=== PATIENT | female | born 1940 | race Caucasian/White ===

== ENCOUNTER 2018-10-03 08:56 | Emergency (ER) | payer MEDICARE, OTHER ==
[2018-10-03 09:24] VITALS: BP 156/76
--- NOTE | 2018-10-03 09:28 | EDM.PDOC ---
<Latonia Key - Last Filed: 10/03/18 11:25> ED HPI GENERAL MEDICAL PROBLEM - General Chief Complaint: Genitourinary Problem Stated Complaint: KIDNEY STONE? Time Seen by Provider: 10/03/18 09:35 Source of Information: Reports: Patient History Limitations: Reports: No Limitations - History of Present Illness INITIAL COMMENTS - FREE TEXT/NARRATIVE: Patient presents to ER with CC of blood in urine as well as urinary retention. Patient did have appointment with PCP this morning, but states that she was not able to void and instructed to present to ER. Patient states that this blood in her urine has been ongoing for a couple days. Patient additionally states that this is not the first time she has experienced blood in her urine. Patient does follow with nephrology, Dr. Winslow,in [place], [place]. Patient states that she experienced some sharp pain in her right flank region yesterday but that has since let up. Currently, patient states she feels a heavy pressure in her low groin region. Patient denies any nausea, vomiting, fever, or chills. Patient states that she had a UTI "many, many years" ago. Denies any history of kidney stones. Did void very small amount once arriving to ER. Patient reports that last bowel movement was yesterday, has daily BM's and has been regular with this. Onset Date: 09/30/18 Location: Reports: Other (low groin and right back/flank) Quality: Reports: Pressure Severity: Moderate Associated Symptoms: Reports: Other (urinary retention) Groin Pain Score (Numeric/FACES): 7 - Related Data Allergies Allergy/AdvReac Type Severity Reaction Status Date / Time cephalexin [Cephalexin] Allergy Cannot Verified 10/03/18 09:12 Remember levofloxacin [From Levaquin] Allergy Muscle Verified 10/03/18 09:12 Aches sulfadiazine [Sulfadiazine] Allergy Cannot Verified 10/03/18 09:12 Remember triamcinolone Allergy Cannot Verified 10/03/18 09:12 Remember triamcinolone acetonide Allergy Swollen Verified 10/03/18 09:12 [From Nasacort AQ] Tongue Home Meds: Home Meds Aspirin [Low Dose Aspirin EC] 81 mg PO BEDTIME 06/19/13 [History] Benazepril [Lotensin] 60 mg PO BID 02/19/14 [History] Metoprolol Tartrate 200 mg PO BID 06/19/13 [History] amLODIPine [Norvasc] 10 mg PO BEDTIME 06/19/13 [History] Albuterol [Ventolin HFA] 2 puff INH Q4H PRN 11/26/13 [History] Cetirizine HCl [Zyrtec] 10 mg PO .PRN PRN 02/16/18 [History] Chlorthalidone 25 mg PO BEDTIME 02/16/18 [History] Fluticasone Propionate [Flonase Allergy Relief] 1 spray NASBOTH .PRN 02/16/18 [ History] Fluticasone/Salmeterol [Advair 500-50] 1 puff PO BID 02/16/18 [History] Isosorbide Mononitrate [Isosorbide Mononitrate ER] 30 mg PO BID 02/16/18 [ History] Ipratropium [Atrovent 0.06% Nasal [place]] 15 ml BENEDICT TID PRN 02/17/18 [History] Albuterol/Ipratropium [DuoNeb 3.0-0.5 MG/3 ML] 3 ml NEB QID PRN #60 neb [Rx] Past Medical History HEENT History: Reports: Hard of Hearing, Impaired Vision Cardiovascular History: Reports: None Respiratory History: Reports: COPD, Pneumonia, Recurrent, SOB Other Respiratory History: Hx of double pneumonia recurrent in the , since pneumonia vaccine was givne in the .it has not reoccured Gastrointestinal History: Reports: Other (See Below) Other Gastrointestinal History: Hx of microscopic colitis Genitourinary History: Reports: Renal Disease, Other (See Below) Other Genitourinary History: Stage 3 kidney disease NEGATIVE TURNER APPRENTICE History: Reports: None, Other NEGATIVE TURNER APPRENTICE History: x6 Musculoskeletal History: Reports: Osteoarthritis Neurological History: Reports: CVA, Other (See Below) Other Neuro History: Right side CVA Psychiatric History: Reports: Depression Endocrine/Metabolic History: Reports: Diabetes, Type II, Other (See Below) Other Endocrine/Metabolic History: Controled with diet Hematologic History: Reports: None Immunologic History: Reports: None Oncologic (Cancer) History: Reports: None Dermatologic History: Reports: None - Infectious Disease History Infectious Disease History: Reports: Chicken Pox, Measles, Mumps, Shingles - Past Surgical History Head Surgeries/Procedures: Reports: None HEENT Surgical History: Reports: Laser Surgery Other HEENT Surgeries/Procedures: bilateral eye Cardiovascular Surgical History: Reports: None GI Surgical History: Reports: None Female Surgical History: Reports: D&C Endocrine Surgical History: Reports: None Neurological Surgical History: Reports: None Musculoskeletal Surgical History: Reports: None Social & Family History - Family History Family Medical History: Noncontributory - Tobacco Use Smoking Status *Q: Former Smoker Years of Tobacco use: 60 Packs/Tins Daily: 1 Used Tobacco, but Quit: Yes Month/Year Tobacco Last Used: January, Second Hand Smoke Exposure: No - Caffeine Use Caffeine Use: Reports: Coffee, Soda, Tea - Recreational Drug Use Recreational Drug Use: No ED ROS GENERAL - Review of Systems Review Of Systems: ROS reveals no pertinent complaints other than HPI. ED EXAM, RENAL/ - Physical Exam Exam: See Below Exam Limited By: No Limitations General Appearance: Alert, WD/WN, No Apparent Distress Head: Atraumatic, Normocephalic Neck: Normal Inspection, Supple, Non-Tender, Full Range of Motion Respiratory/Chest: No Respiratory Distress, Lungs Clear, Normal Breath Sounds, No Accessory Muscle Use, Chest Non-Tender Cardiovascular: Normal Peripheral Pulses, Regular Rate, Rhythm, No Edema, No Gallop, No JVD, No Murmur, No Rub GI/Abdominal: Normal Bowel Sounds, No Distention, No Abnormal Bruit, Distended, Tender (heavy pressure to low groin) Back Exam: Normal Inspection, Full Range of Motion (hx of chronic back pain), NT Extremities: Normal Inspection, Normal Range of Motion, Non-Tender, Normal Capillary Refill, No Pedal Edema Neurological: Alert, Oriented, CN II-XII Intact, Normal Cognition, Normal Gait, Normal Reflexes, No Motor/Sensory Deficits Psychiatric: Normal Affect, Normal Mood Skin Exam: Warm, Dry, Intact, Normal Color, No Rash Course - Vital Signs Last Recorded V/S: Last Vital Signs Temp 96.8 F 10/03/18 09:05 Pulse 65 10/03/18 09:05 Resp 24 H 10/03/18 09:05 BP 156/76 H 10/03/18 09:23 Pulse Ox 99 10/03/18 09:05 - Orders/Labs/Meds Orders: Active Orders 24 hr Category Date Time Status [place] Catheter Insertion [Insert Urinary Catheter] [OM. Care 10/03/18 09:45 Ordered PC] Q24H Peripheral IV Care [RC] . DIRECTED Care 10/03/18 09:46 Active Urinary Catheter Assessment [RC] ASDIRECTED Care 10/03/18 09:43 Active Abdomen Pelvis wo Cont [CT] Urgent Exams 10/03/18 09:43 Taken CULTURE URINE [RM] Stat Lab 10/03/18 09:35 Received Sodium Chloride 0.9% [Saline Flush] Med 10/03/18 09:46 Active 10 ml FLUSH ASDIRECTED PRN Peripheral IV Insertion Adult [OM.PC] Routine Oth 10/03/18 09:46 Ordered Medication Orders Sodium Chloride (Saline Flush) 10 ml FLUSH ASDIRECTED PRN PRN Reason: Keep Vein Open Last Admin: 10/03/18 10:20 Dose: 10 ml Labs: Laboratory Tests 10/03/18 10/03/18 10/03/18 Range/Units 09:35 10:22 10:22 WBC 9.3 (5.0-10.0) 10^3/uL RBC 4.62 (4.2-5.4) 10^6/uL Hgb 14.1 D (12.0-16.0) g/dL Hct 42.1 (37.0-47.0) % MCV 91.1 (80-100) fL MCH 30.5 (27.0-34.0) pg MCHC 33.5 (33.0-35.0) g/dL Plt Count 280 (150-450) 10^3/uL Neut % (Auto) 69.3 (42.2-75.2) % Lymph % (Auto) 18.5 L (20.5-50.1) % [place] % (Auto) 10.9 H (2-8) % Eos % (Auto) 1.2 (1.0-3.0) % Baso % (Auto) 0.1 (0.0-1.0) % Sodium 135 (135-145) mmol/L Potassium 4.4 (3.6-5.0) mmol/L Chloride 101 (101-111) mmol/L Carbon Dioxide 23.0 (21.0-31.0) mmol/L Anion Gap 15.4 BUN 53 H D (7-18) mg/dL Creatinine 1.2 (0.6-1.3) mg/dL Est Cr Clr Drug Dosing 33.72 mL/min Estimated GFR (MDRD) 44 BUN/Creatinine Ratio 44.16 Glucose 204 H (74-105) mg/dL Calcium 9.8 (8.4-10.2) mg/dl Total Bilirubin 0.8 (0.2-1.0) mg/dL AST 21 (10-42) IU/L ALT 18 (10-60) IU/L Alkaline Phosphatase 62 (42-121) IU/L Total Protein 7.3 (6.7-8.2) g/dl Albumin 4.2 (3.2-5.5) g/dl Globulin 3.1 Albumin/Globulin Ratio 1.35 Urine Color [place] (YELLOW) Urine Appearance Slightly cloudy (CLEAR) Urine pH 5.0 (5.0-9.0) Ur Specific [place] 1.020 (1.005-1.030) Urine Protein 100 H (NEGATIVE) Urine Glucose (UA) 100 H (NEGATIVE) Urine Ketones Negative (NEGATIVE) Urine Occult Blood Large H (NEGATIVE) Urine Nitrite Positive H (NEGATIVE) Urine Bilirubin Small H (NEGATIVE) Urine Urobilinogen 0.2 (0.2-1.0) mg/dL Ur Leukocyte Esterase Large H (NEGATIVE) Urine RBC Semi-packed H /HPF Urine WBC 10-20 H (0-5/HPF) /HPF Ur Epithelial Cells Moderate H (NOT SEEN) /HPF Amorphous Sediment Few (NOT SEEN) /HPF Urine Bacteria Few (0-FEW/HPF) /HPF Urine Mucus Few H (NOT SEEN) /LPF Urinalysis Comment See note Meds: Medications Generic Name Dose Route Start Last Admin Trade Name Freq PRN Reason Stop Dose Admin Sodium Chloride 10 ml 10/03/18 09:46 10/03/18 10:20 Saline Flush FLUSH 10 ml ASDIRECTED PRN Administration Keep Vein Open Discontinued Medications Generic Name Dose Route Start Last Admin Trade Name Freq PRN Reason Stop Dose Admin Hydromorphone HCl 1 mg 10/03/18 09:46 10/03/18 10:26 Dilaudid IVPUSH 10/03/18 09:47 1 mg ONETIME ONE Administration Meropenem/Sodium Chloride 1 gm 50 mls @ 100 mls/hr 10/03/18 10:26 10/03/18 10 :52 / Premix IV 10/03/18 10:55 100 mls/hr ONETIME ONE Administration Ondansetron HCl 4 mg 10/03/18 09:48 10/03/18 10:26 Zofran IV 10/03/18 09:49 4 mg ONETIME ONE Administration - Re-Assessments/Exams Free Text/Narrative Re-Assessment/Exam: Indwelling urinary catheter inserted to be left in place until patient has follow up with urology. Appointment scheduled for MondayOctober [address] [facility] in [place] at 0940, with LUCIEN Contreras for pre-op. Then, at 2:45 on October 09, scheduled for bladder scope at the [facility] in [place], [place]. NPO not required. 10/03/18 11:30 Departure - Departure Time of Disposition: 11:31 Disposition: Home, Self-Care 01 Clinical Impression: Bladder mass, UTI, Urinary tract infectious disease, Retention of urine Hematuria Qualifiers: Hematuria type: gross Qualified Code(s): R31.0 - Gross hematuria - Discharge Information *PRESCRIPTION DRUG MONITORING PROGRAM REVIEWED*: No *COPY OF PRESCRIPTION DRUG MONITORING REPORT IN PATIENT CORWIN: No Instructions: Urinary Tract Infection, Adult, [id number], Indwelling Urinary Catheter Insertion, Care After, Hematuria, Adult Referrals: Rachael Sullivan PA [Primary Care Provider] - Forms: ED Department Discharge Additional Instructions: Rx: Cipro You were given one dose of IV antibiotic, Meropenem, in the emergency room. Leave urinary catheter in place until follow up with urology. Follow up appointment is scheduled for October [address] [facility] in [place] with Sandra Watters PA-C. Arrive 15 minutes early for this appointment. Then, at 2:45 on October 09, you are scheduled for bladder scope in [place], [place] at [facility]. There is no need to withhold food or drink for this procedure. <Everette Holder - Last Filed: 10/03/18 11:34> Course - Re-Assessments/Exams Free Text/Narrative Re-Assessment/Exam: 10/03/18 11:33 I personally performed or re-performed the physical examination and medical decision making. I have verified all student documentation or findings, including history, physical exam and/or medical decision making.
[2018-10-03] MEDS ORDERED: Sodium Chloride 0.9% 10 ML Syringe FLUSH PRN (09:46)
[2018-10-03] MEDS ORDERED: HYDROmorphone 1 MG/ML Syringe IVPUSH ONE (09:46)
[2018-10-03] MEDS ORDERED: Ondansetron 4 MG/2 ML SDV IV ONE (09:48)
[2018-10-03] MEDS ORDERED: Meropenem Premix 1 GM in Premix Bag 1 BAG IV ONE (10:26)
[2018-10-03 10:47] LABS: ANION GAP 15.4
--- NOTE | 2018-10-03 11:33 | CT ---
CLINICAL u: [id number] pound female (former smoker) with back pain and abnormal urine. SCAN TECHNIQUE: Volume acquisition of data from an emergency unenhanced CT scan of the abdomen and pelvis obtained while the patient was lying supine on the Siemens multislice scanner [place], [place]. All data archived in the PACS system for storage, reformatting axial/sagittal/coronal planes and study. INTERPRETATION: 1. Small volume inhomogeneously dense gallbladder RUQ. Recommend ultrasound follow-up. 2. Normal liver, stomach, spleen, pancreas, adrenal glands unremarkable. 3. Solitary 2.3 cm water attenuation exophytic mass lower pole left kidney (cyst). No solid discrete cortical mass lesion, nephrolithiasis or signs of obstructive uropathy. 4. Distended urinary bladder with at least 2 intraluminal mucosal wall masses suggesting transitional cell neoplasm. *Recommend cystoscopy and/or cystogram. 5. Senescent midline uterus and no adnexal mass lesions. No abdominal mass, mesenteric or retroperitoneal lymphadenopathy, signs of mechanical bowel obstruction, ascites or free intraperitoneal air. Normal retrocecal appendix, right paracolic gutter. 6. Densely calcified "cast" normal caliber aortoiliac and major branches (no aneurysm or dissection). 7. Lung bases are clear. Normal cardiac silhouette. No sign of malignancy lumbar spine. No fracture or dislocation. 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 Suspicious gallbladder. Ultrasound recommended.
== END 2018-10-03 12:02 | disposition home or self-care (01) ==
LOC: DL.ED 08:56
DX: N32.9 Bladder disorder, unspecified (principal); N39.0 Urinary tract infection, site not specified; J44.9 Chronic obstructive pulmonary disease, unspecified; N18.3 Chronic kidney disease, stage 3 (moderate); E11.22 Type 2 diabetes mellitus with diabetic chronic kidney disease; F32.9 Major depressive disorder, single episode, unspecified; Z87.891 Personal history of nicotine dependence; Z88.1 Allergy status to other antibiotic agents; Z88.8 Allergy status to other drugs, medicaments and biological substances; Z79.899 Other long term (current) drug therapy; Z79.82 Long term (current) use of aspirin
CPT/HCPCS: 36415; 51702; 74176; 80053; 81001; 85025; 87086; 96365; 96375; 99284; A4217; J1170; J2185; J2405; 87088

== ENCOUNTER 2018-10-05 17:12 | Emergency (ER) | payer MEDICARE, OTHER ==
--- NOTE | 2018-10-05 20:20 | EDM.PDOC ---
ED HPI GENERAL MEDICAL PROBLEM - General Chief Complaint: Genitourinary Problem Stated Complaint: CATHETER IS OUT Time Seen by Provider: 10/05/18 18:00 Source of Information: Reports: Patient History Limitations: Reports: No Limitations - History of Present Illness INITIAL COMMENTS - FREE TEXT/NARRATIVE: patient comes emergency Department today with complaints of leakage of her Ramyond catheter and increase abdominal pressure and urge for urination. The patient on Monday was diagnosed with a bladder tumor and had a Raymond placed due to urinary retention and hematuria. She has a follow-up with urology on Monday for the hematuria as well as the urinary retention and newly diagnosed bladder tumor. Tonight she noticed that she was having quite a bit more pressure in her lower abdomen urge to void and had some leakage of fluid around the Raymond catheter. She has noticed an increased amount of blood in her leg bag as well. No chest pain shortness of breath or difficulty breathing. No syncope. No palpitations. No dizziness or lightheadedness. - Related Data Allergies Allergy/AdvReac Type Severity Reaction Status Date / Time cephalexin [Cephalexin] Allergy Cannot Verified 10/05/18 17:45 Remember levofloxacin [From Levaquin] Allergy Muscle Verified 10/05/18 17:45 Aches sulfadiazine [Sulfadiazine] Allergy Cannot Verified 10/05/18 17:45 Remember triamcinolone Allergy Cannot Verified 10/05/18 17:45 Remember triamcinolone acetonide Allergy Swollen Verified 10/05/18 17:45 [From Nasacort AQ] Tongue Home Meds: Home Meds Aspirin [Low Dose Aspirin EC] 81 mg PO BEDTIME 06/19/13 [History] Benazepril [Lotensin] 60 mg PO BID 06/19/13 [History] Metoprolol Tartrate 200 mg PO BID 06/19/13 [History] amLODIPine [Norvasc] 10 mg PO BEDTIME 06/19/13 [History] Albuterol [Ventolin HFA] 2 puff INH Q4H PRN 11/26/13 [History] Cetirizine HCl [Zyrtec] 10 mg PO .PRN PRN 02/16/18 [History] Chlorthalidone 25 mg PO BEDTIME 02/16/18 [History] Fluticasone Propionate [Flonase Allergy Relief] 1 spray NASBOTH .PRN 02/16/18 [ History] Fluticasone/Salmeterol [Advair 500-50] 1 puff PO BID 02/16/18 [History] Isosorbide Mononitrate [Isosorbide Mononitrate ER] 30 mg PO BID 02/16/18 [ History] Ipratropium [Atrovent 0.06% Nasal [place]] 15 ml BENEDICT TID PRN 02/17/18 [History] Albuterol/Ipratropium [DuoNeb 3.0-0.5 MG/3 ML] 3 ml NEB QID PRN #60 neb [Rx] Ciprofloxacin [Ciprofloxacin HCl] 500 mg PO BID 10/05/18 [History] Past Medical History HEENT History: Reports: Hard of Hearing, Impaired Vision Cardiovascular History: Reports: None Respiratory History: Reports: COPD, Pneumonia, Recurrent, SOB Other Respiratory History: Hx of double pneumonia recurrent in the , since pneumonia vaccine was givne in the .it has not reoccured Gastrointestinal History: Reports: Other (See Below) Other Gastrointestinal History: Hx of microscopic colitis Genitourinary History: Reports: Renal Disease, Other (See Below) Other Genitourinary History: Stage 3 kidney disease. Bladder tumor, blood tinged urine and indwelling raymond placed 10/03/2018 HITCH TECHNICIAN History: Reports: None, Other HITCH TECHNICIAN History: x6 Musculoskeletal History: Reports: Osteoarthritis Neurological History: Reports: CVA, Other (See Below) Other Neuro History: Right side CVA Psychiatric History: Reports: Depression Endocrine/Metabolic History: Reports: Diabetes, Type II, Other (See Below) Other Endocrine/Metabolic History: Controled with diet Hematologic History: Reports: None Immunologic History: Reports: None Oncologic (Cancer) History: Reports: None Dermatologic History: Reports: None - Infectious Disease History Infectious Disease History: Reports: Chicken Pox, Measles, Mumps, Shingles - Past Surgical History Head Surgeries/Procedures: Reports: None HEENT Surgical History: Reports: Laser Surgery Other HEENT Surgeries/Procedures: bilateral eye Cardiovascular Surgical History: Reports: None GI Surgical History: Reports: None Female Surgical History: Reports: D&C Endocrine Surgical History: Reports: None Neurological Surgical History: Reports: None Musculoskeletal Surgical History: Reports: None Social & Family History - Family History Family Medical History: Noncontributory - Tobacco Use Smoking Status *Q: Former Smoker Used Tobacco, but Quit: Yes Month/Year Tobacco Last Used: 2018 - Caffeine Use Caffeine Use: Reports: Coffee, Soda, Tea ED ROS GENERAL - Review of Systems Review Of Systems: ROS reveals no pertinent complaints other than HPI. ED EXAM, RENAL/ - Physical Exam Exam: See Below Exam Limited By: No Limitations General Appearance: Alert, WD/WN Respiratory/Chest: No Respiratory Distress, Lungs Clear, Chest Non-Tender Cardiovascular: Normal Peripheral Pulses, Regular Rate, Rhythm GI/Abdominal: Normal Bowel Sounds, Soft, Tender (tenderness and fullness to the suprapubic region. Mild guarding no rebound. ) (Female) Exam: Other (Raymond catheter in place. With nitza blood in the Raymond bag with clots.Bladder scan shows greater than 1 L.) Back Exam: Normal Inspection Extremities: Normal Inspection, Normal Range of Motion, Normal Capillary Refill Neurological: Alert, Oriented, No Motor/Sensory Deficits Psychiatric: Normal Affect, Normal Mood Skin Exam: Warm, Dry, Intact, Normal Color ED PROCEDURES - Additional/Other Procedure(s) Procedure(s) (Free Text): three-way Raymond catheter was placed with continuous bladder irrigation and removal of quite a few clots initially. CBI was slowly titrated to keep the urine as clear as possible. Monitor closely for appropriate in amount. Course - Vital Signs Last Recorded V/S: Last Vital Signs Temp 36.5 C 10/05/18 17:14 Pulse 67 10/05/18 17:14 Resp 18 10/05/18 17:14 BP 147/58 H 10/05/18 17:14 Pulse Ox 99 10/05/18 17:14 - Orders/Labs/Meds Orders: Active Orders 24 hr Category Date Time Status Insert Raymond Catheter [Insert Urinary Catheter] [OM.PC] Care 10/05/18 20:15 Ordered Q24H Urinary Catheter Assessment [RC] ASDIRECTED Care 10/05/18 20:11 Active CBC WITH AUTO DIFF [HEME] Stat Lab 10/05/18 19:45 Results MANUAL DIFFERENTIAL QA/NC [HEME] Stat Lab 10/05/18 19:45 Results Labs: Laboratory Tests 10/05/18 10/05/18 10/05/18 Range/Units 19:45 19:45 19:45 WBC 8.5 (5.0-10.0) 10^3/uL RBC 4.07 L (4.2-5.4) 10^6/uL Hgb 12.6 D (12.0-16.0) g/dL Hct 37.2 (37.0-47.0) % MCV 91.4 (80-100) fL MCH 31.0 (27.0-34.0) pg MCHC 33.9 (33.0-35.0) g/dL Plt Count 239 (150-450) 10^3/uL Neut % (Auto) 67.6 (42.2-75.2) % Lymph % (Auto) 20.0 L (20.5-50.1) % [place] % (Auto) 10.8 H (2-8) % Eos % (Auto) 1.5 (1.0-3.0) % Baso % (Auto) 0.1 (0.0-1.0) % Add Manual Diff Yes PT 9.2 (9.0-12.0) SEC INR 0.9 (0.9-1.2) Sodium 133 L (135-145) mmol/L Potassium 4.5 (3.6-5.0) mmol/L Chloride 99 L (101-111) mmol/L Carbon Dioxide 23.0 (21.0-31.0) mmol/L Anion Gap 15.5 BUN 55 H (7-18) mg/dL Creatinine 1.4 H (0.6-1.3) mg/dL Est Cr Clr Drug Dosing 28.28 mL/min Estimated GFR (MDRD) 37 Glucose 171 H (74-105) mg/dL Calcium 9.2 (8.4-10.2) mg/dl - Re-Assessments/Exams Free Text/Narrative Re-Assessment/Exam: 10/05/18 20:30 I did speak with Dr. Hanna who declined the patient. Her hemoglobin has decreased by 2 grams. She is hemodynamically stable. I called and spoke with Dr. Lovelace at [facility]. [facility] ER COURSE findings and concerns were relayed to him. He accepted the patient in transfer at this time and no new orders. The patient was comfortable with this plan and her questions answered. 10/05/18 20:31 Departure - Departure Time of Disposition: 20:15 Disposition: DC/Tfer to Acute Hospital 02 Clinical Impression: Urinary retention, Hematuria - Discharge Information Forms: ED Department Discharge - My Orders Last 24 Hours: My Active Orders 10/05/18 19:45 CBC WITH AUTO DIFF [HEME] Stat MANUAL DIFFERENTIAL QA/NC [HEME] Stat 10/05/18 20:11 Urinary Catheter Assessment [RC] ASDIRECTED 10/05/18 20:15 Insert Raymond Catheter [Insert Urinary Catheter] [OM.PC] Q24H - Assessment/Plan Last 24 Hours: My Active Orders 10/05/18 19:45 CBC WITH AUTO DIFF [HEME] Stat MANUAL DIFFERENTIAL QA/NC [HEME] Stat 10/05/18 20:11 Urinary Catheter Assessment [RC] ASDIRECTED 10/05/18 20:15 Insert Raymond Catheter [Insert Urinary Catheter] [OM.PC] Q24H Assessment:: Hematuria urinary retention Both above most likely due to known bladder tumor. CBI. Plan: Transfer to [facility] with CBI infusing for further care and evaluation.
[2018-10-05 20:23] LABS: ANION GAP 15.5
[2018-10-05] MEDS ORDERED: Sodium Chloride 0.9% 10 ML Syringe FLUSH PRN (20:32)
[2018-10-06 01:45] VITALS: BP 114/88
== END 2018-10-06 02:24 ==
LOC: DL.ED 17:12
DX: R33.9 Retention of urine, unspecified (principal); R31.9 Hematuria, unspecified; J44.9 Chronic obstructive pulmonary disease, unspecified; N18.3 Chronic kidney disease, stage 3 (moderate); E11.22 Type 2 diabetes mellitus with diabetic chronic kidney disease; Z88.8 Allergy status to other drugs, medicaments and biological substances; Z96.0 Presence of urogenital implants; Z79.899 Other long term (current) drug therapy; Z79.82 Long term (current) use of aspirin
CPT/HCPCS: 36415; 51700; 51702; 51798; 80048; 85025; 85610; 99283; 99284

== ENCOUNTER 2019-10-11 12:09 | Emergency (ER) | payer MEDICARE, OTHER ==
[2019-10-11 13:04] VITALS: BP 125/90; PULSE 97
--- NOTE | 2019-10-11 13:14 | EDM.PDOC ---
ED HPI GENERAL MEDICAL PROBLEM - General Chief Complaint: Skin Complaint Stated Complaint: TICK BITE Time Seen by Provider: 10/11/19 13:14 Source of Information: Reports: Patient, RN, RN Notes Reviewed History Limitations: Reports: No Limitations - History of Present Illness INITIAL COMMENTS - FREE TEXT/NARRATIVE: Presents to ER with complaint of rash and blisters on the left side of her neck , behind the left ear, on the left side of the chest and the left shoulder. Patient states there is a severe burning sensation, and several have blistered. She states she has had the shingles vaccination, as well as has had shingles in the past. Patient denies fever or chills. States last week was ill, and was tested for COVID-19. Patient was started on antibiotics. Patient states the doxycycline she was started on upset her stomach terribly, so was started on a azithromycin. COVID-19 testing was negative. Denies chest pains, shortness of breath, N/V/D. Patient did bring a wood tick in a container, states she found it in her clothing. Patient is wondering if the rash is from a wood tick bite. Did see a wood tick attached to her skin. Onset: Gradual Left Neck Pain Score (Numeric/FACES): 6 - Related Data Allergies Allergy/AdvReac Type Severity Reaction Status Date / Time cephalexin [Cephalexin] Allergy Cannot Verified 10/11/19 12:55 Remember levofloxacin [From Levaquin] Allergy Muscle Verified 10/11/19 12:55 Aches sulfadiazine [Sulfadiazine] Allergy Cannot Verified 10/11/19 12:55 Remember triamcinolone Allergy Cannot Verified 10/11/19 12:55 Remember triamcinolone acetonide Allergy Swollen Verified 10/11/19 12:55 [From Nasacort AQ] Tongue Home Meds: Home Meds Aspirin [Low Dose Aspirin EC] 81 mg PO BEDTIME 06/19/13 [History] Benazepril [Lotensin] 60 mg PO BID 06/19/13 [History] Metoprolol Tartrate 400 mg PO BID 06/19/13 [History] amLODIPine [Norvasc] 10 mg PO BEDTIME 06/19/13 [History] Albuterol [Ventolin HFA] 2 puff INH Q4H PRN 11/26/13 [History] Cetirizine HCl [Zyrtec] 10 mg PO ASDIRECTED PRN 02/16/18 [History] Chlorthalidone 25 mg PO DAILY 02/16/18 [History] Fluticasone Propionate [Flonase Allergy Relief] 1 spray NASBOTH ASDIRECTED PRN 02/16/18 [History] Fluticasone/Salmeterol [Advair 500-50] 1 puff PO TID 02/16/18 [History] Isosorbide Mononitrate [Isosorbide Mononitrate ER] 30 mg PO BID 02/16/18 [ History] Ipratropium [Atrovent 0.06% Nasal [place]] 15 ml BENEDICT TID PRN 02/17/18 [History] Albuterol/Ipratropium [DuoNeb 3.0-0.5 MG/3 ML] 3 ml NEB QID PRN #60 neb [Rx] Past Medical History HEENT History: Reports: Hard of Hearing, Impaired Vision Cardiovascular History: Reports: None Respiratory History: Reports: COPD, Pneumonia, Recurrent, SOB Other Respiratory History: Hx of double pneumonia recurrent in the , since pneumonia vaccine was givne in the .it has not reoccured Gastrointestinal History: Reports: Other (See Below) Other Gastrointestinal History: Hx of microscopic colitis Genitourinary History: Reports: Renal Disease, Other (See Below) Other Genitourinary History: Stage 3 kidney disease. 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 [employer] MEAL History: x6 Musculoskeletal History: Reports: Osteoarthritis Neurological History: Reports: CVA, Other (See Below) Other Neuro History: Right side CVA Psychiatric History: Reports: Depression Endocrine/Metabolic History: Reports: Diabetes, Type II, Other (See Below) Other Endocrine/Metabolic History: Controled with diet Hematologic History: Reports: None Immunologic History: Reports: None Oncologic (Cancer) History: Reports: None Dermatologic History: Reports: None - Infectious Disease History Infectious Disease History: Reports: Chicken Pox, Measles, Mumps, Shingles - Past Surgical History Head Surgeries/Procedures: Reports: None HEENT Surgical History: Reports: Laser Surgery Other HEENT Surgeries/Procedures: bilateral eye Cardiovascular Surgical History: Reports: None GI Surgical History: Reports: None Female Surgical History: Reports: D&C Endocrine Surgical History: Reports: None Neurological Surgical History: Reports: None Musculoskeletal Surgical History: Reports: None Social & Family History - Family History Family Medical History: Noncontributory - Caffeine Use Caffeine Use: Reports: Coffee, Soda, Tea ED ROS GENERAL - Review of Systems Review Of Systems: Comprehensive ROS is negative, except as noted in HPI. ED EXAM, SKIN/RASH Exam: See Below Exam Limited By: No Limitations General Appearance: Alert, WD/WN, Mild Distress Eye Exam: Bilateral Eye: EOMI, Normal Inspection Ears: Normal External Exam, Hearing Grossly Normal Nose: Normal Inspection Throat/Mouth: Normal Inspection, Normal Voice, No Airway Compromise Head: Atraumatic, Normocephalic Neck: Normal Inspection, Supple, Non-Tender, Full Range of Motion Respiratory/Chest: No Respiratory Distress, Lungs Clear, Normal Breath Sounds, No Accessory Muscle Use, Chest Non-Tender Cardiovascular: Normal Peripheral Pulses, Regular Rate, Rhythm, No Edema, No Gallop, No JVD, No Murmur, No Rub Peripheral Pulses: 2+: Radial (L), Radial (R) GI/Abdominal: Normal Bowel Sounds, Soft, Non-Tender (Female) Exam: Deferred Rectal (Female) Exam: Deferred Back Exam: Normal Inspection, Full Range of Motion, NT Extremities: Normal Inspection, Normal Range of Motion, Non-Tender, No Pedal Edema, Normal Capillary Refill Neurological: Alert, Oriented, CN II-XII Intact, Normal Cognition, Normal Gait, Normal Reflexes, No Motor/Sensory Deficits Psychiatric: Normal Affect, Normal Mood Skin: Warm, Dry, Zoster-Like Rash (with vesicles and blisters present) Location, Skin: Neck, Chest, Upper Extremity, Left Characteristics: Vesicular, Bullous Lymphatic: No Adenopathy Course - Vital Signs Last Recorded V/S: Last Vital Signs Temp 97.8 F 10/11/19 13:00 Pulse 97 10/11/19 13:00 Resp 18 10/11/19 13:00 BP 125/90 10/11/19 13:00 Pulse Ox 95 10/11/19 13:00 Departure - Departure Time of Disposition: 13:45 Disposition: Home, Self-Care 01 Condition: Fair Clinical Impression: Shingles rash Qualifiers: Herpes zoster complications: without complications Qualified Code(s): B02.9 - Zoster without complications - Discharge Information *PRESCRIPTION DRUG MONITORING PROGRAM REVIEWED*: No *COPY OF PRESCRIPTION DRUG MONITORING REPORT IN PATIENT CORWIN: No Instructions: Shingles, [id number] Referrals: Rachael Sullivan NP [Primary Care Provider] - Forms: ED Department Discharge Additional Instructions: Keep areas covered if possible Try to stay away from people until all lesions have crusted May use cool wet compress to alleviate the burning and pain (20 minutes, several times a day) RX: Acyclovir, Prednisone Follow up with your primary care facility Sepsis Event Note (ED) - Evaluation Sepsis Screening Result: Possible Sepsis Risk - Focused Exam Vital Signs: Vital Signs Temp Pulse Resp BP Pulse Ox 10/11/19 13:00 97.8 F 97 18 125/90 95
== END 2019-10-11 13:44 | disposition home or self-care (01) ==
LOC: DL.ED 12:09
DX: B02.9 Zoster without complications (principal); J44.9 Chronic obstructive pulmonary disease, unspecified; N18.3 Chronic kidney disease, stage 3 (moderate); E11.9 Type 2 diabetes mellitus without complications; Z88.1 Allergy status to other antibiotic agents; Z88.2 Allergy status to sulfonamides; Z79.82 Long term (current) use of aspirin; Z79.899 Other long term (current) drug therapy; Z86.73 Personal history of transient ischemic attack (TIA), and cerebral infarction without residual deficits
CPT/HCPCS: 99282; 99283

== ENCOUNTER 2019-11-11 18:48 | Emergency (ER) | payer MEDICARE, OTHER ==
[2019-11-11 18:59] VITALS: BP 160/64; PULSE 84
[2019-11-11 19:29] LABS: ANION GAP 13.1 mEq/L (7-13)
--- NOTE | 2019-11-11 20:06 | CR ---
PROCEDURE INFORMATION: Exam: XR Chest, 1 View Exam date and time: 11/11/2019 7:56 PM Age: 79 years old Clinical indication: Shortness of breath; Additional info: Cough TECHNIQUE: Imaging protocol: XR of the chest Views: 1 view. COMPARISON: CR Chest 2V 02/16/2018 11:20 AM FINDINGS: Lungs: Unremarkable. No consolidation. Pleural space: Unremarkable. No pleural effusion. No pneumothorax. Heart/Mediastinum: Unremarkable. No cardiomegaly. Bones/joints: Degenerative thoracic spine. IMPRESSION: No acute findings.
[2019-11-11] MEDS ORDERED: methylPREDNISolone Sodium Succinate 125 MG/2 ML SDV IVPUSH ONE (20:08)
[2019-11-11] MEDS ORDERED: Iopamidol 755 Mg/ML 100 ML Bottle IVPUSH ONE (20:37)
--- NOTE | 2019-11-11 21:08 | EDM.PDOC ---
ED HPI GENERAL MEDICAL PROBLEM - General Chief Complaint: Chest Pain Stated Complaint: CHEST, HARD TO BREATH Time Seen by Provider: 11/11/19 19:20 Source of Information: Reports: Patient, RN History Limitations: Reports: No Limitations - History of Present Illness INITIAL COMMENTS - FREE TEXT/NARRATIVE: Sudden onset SOB while fixing supper, denied any chest pain. Dry non productive cough on arrival. Denied fever, chills or possible exposure, Similar event 18 months ago and negative, Had used inhaler prior to arrival. States only uses approximately one time per month, Diabetic, A1c usually under 7. Hx 62 smoker, quit after previous breathing episode. States almost back to baseline now. - Related Data Allergies Allergy/AdvReac Type Severity Reaction Status Date / Time cephalexin [Cephalexin] Allergy Cannot Verified 11/11/19 18:59 Remember levofloxacin [From Levaquin] Allergy Muscle Verified 11/11/19 18:59 Aches sulfadiazine [Sulfadiazine] Allergy Cannot Verified 11/11/19 18:59 Remember triamcinolone Allergy Cannot Verified 11/11/19 18:59 Remember triamcinolone acetonide Allergy Swollen Verified 11/11/19 18:59 [From Nasacort AQ] Tongue Home Meds: Home Meds Aspirin [Low Dose Aspirin EC] 81 mg PO BEDTIME 06/19/13 [History] Benazepril [Lotensin] 60 mg PO BID 06/19/13 [History] Metoprolol Tartrate 400 mg PO BID 06/19/13 [History] amLODIPine [Norvasc] 10 mg PO BEDTIME 06/19/13 [History] Albuterol [Ventolin HFA] 2 puff INH Q4H PRN 11/26/13 [History] Cetirizine HCl [Zyrtec] 10 mg PO ASDIRECTED PRN 02/16/18 [History] Chlorthalidone 25 mg PO DAILY 02/16/18 [History] Fluticasone Propionate [Flonase Allergy Relief] 1 spray NASBOTH ASDIRECTED PRN 02/16/18 [History] Fluticasone/Salmeterol [Advair 500-50] 1 puff PO TID 02/16/18 [History] Isosorbide Mononitrate [Isosorbide Mononitrate ER] 30 mg PO BID 02/16/18 [History] Ipratropium [Atrovent 0.06% Nasal [place]] 15 ml BENEDICT TID PRN 02/17/18 [History] Albuterol/Ipratropium [DuoNeb 3.0-0.5 MG/3 ML] 3 ml NEB QID PRN #60 neb 02/18/18 [Rx] Past Medical History HEENT History: Reports: Hard of Hearing, Impaired Vision Cardiovascular History: Reports: None Respiratory History: Reports: COPD, Pneumonia, Recurrent, SOB Other Respiratory History: Hx of double pneumonia recurrent in the , since pneumonia vaccine was givne in the .it has not reoccured Gastrointestinal History: Reports: Other (See Below) Other Gastrointestinal History: Hx of microscopic colitis Genitourinary History: Reports: Renal Disease, Other (See Below) Other Genitourinary History: Stage 3 kidney disease. 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 Musculoskeletal History: Reports: Osteoarthritis Neurological History: Reports: CVA, Other (See Below) Other Neuro History: Right side CVA Psychiatric History: Reports: Depression Endocrine/Metabolic History: Reports: Diabetes, Type II, Other (See Below) Other Endocrine/Metabolic History: Controled with diet Hematologic History: Reports: None Immunologic History: Reports: None Oncologic (Cancer) History: Reports: None Dermatologic History: Reports: None - Infectious Disease History Infectious Disease History: Reports: Chicken Pox, Measles, Mumps, Shingles - Past Surgical History Head Surgeries/Procedures: Reports: None HEENT Surgical History: Reports: Laser Surgery Other HEENT Surgeries/Procedures: bilateral eye Cardiovascular Surgical History: Reports: None GI Surgical History: Reports: None Female Surgical History: Reports: D&C Endocrine Surgical History: Reports: None Neurological Surgical History: Reports: None Musculoskeletal Surgical History: Reports: None Social & Family History - Family History Family Medical History: Noncontributory - Tobacco Use Smoking Status *Q: Former Smoker Used Tobacco, but Quit: Yes Month/Year Tobacco Last Used: 10/2018 - Caffeine Use Caffeine Use: Reports: None - Recreational Drug Use Recreational Drug Use: No ED ROS GENERAL - Review of Systems Review Of Systems: Comprehensive ROS is negative, except as noted in HPI. ED EXAM, GENERAL - Physical Exam Exam: See Below Exam Limited By: No Limitations General Appearance: Alert, No Apparent Distress Eye Exam: Bilateral Eye: EOMI, PERRL Ears: Normal External Exam Nose: Normal Inspection Throat/Mouth: Normal Inspection Head: Atraumatic, Normocephalic Neck: Normal Inspection, Full Range of Motion Respiratory/Chest: No Respiratory Distress, Lungs Clear, Normal Breath Sounds Cardiovascular: Normal Peripheral Pulses, Regular Rate, Rhythm, No Edema GI/Abdominal: Normal Bowel Sounds, Soft Extremities: Normal Inspection Neurological: Alert, Oriented, Normal Cognition Psychiatric: Normal Affect, Anxious Skin Exam: Warm, Dry, Intact, Normal Color, Zoster-Like Rash (left clavicular) Course - Vital Signs Last Recorded V/S: Last Vital Signs Temp 98.3 F 11/11/19 18:54 Pulse 84 11/11/19 18:54 Resp 23 H 11/11/19 18:54 BP 160/64 H 11/11/19 18:54 Pulse Ox 98 11/11/19 18:54 - Orders/Labs/Meds Orders: Active Orders 24 hr Category Date Time Status CULTURE BLOOD [BC] Stat Lab 11/11/19 19:54 Received Labs: Laboratory Tests 11/11/19 11/11/19 11/11/19 Range/Units 19:03 19:03 19:03 WBC 5.5 (5.0-10.0) 10^3/uL RBC 3.66 L (4.2-5.4) 10^6/uL Hgb 11.5 L (12.0-16.0) g/dL Hct 34.6 L (37.0-47.0) % MCV 94.5 D (80-100) fL MCH 31.4 (27.0-34.0) pg MCHC 33.2 (33.0-35.0) g/dL Plt Count 260 (150-450) 10^3/uL Neut % (Auto) 48.3 (42.2-75.2) % Lymph % (Auto) 40.3 (20.5-50.1) % Thomas % (Auto) 9.1 H (2-8) % Eos % (Auto) 1.6 (1.0-3.0) % Baso % (Auto) 0.7 (0.0-1.0) % D-Dimer, Quantitative 798 H (0-400) ng/mL Sodium 142 (136-145) mmol/L Potassium 4.1 (3.5-5.1) mmol/L Chloride 104 (98-107) mmol/L Carbon Dioxide 29 (21-32) mmol/L Anion Gap 13.1 H (7-13) mEq/L BUN 21 H (7-18) mg/dL Creatinine 1.28 H (0.55-1.02) mg/dL Est Cr Clr Drug Dosing 30.45 mL/min Estimated GFR (MDRD) 40 BUN/Creatinine Ratio 16.4 (No establ ref range) Glucose 203 H (74-99) mg/dL Lactic Acid (0.4-2.0) mmol/L Calcium 9.0 (8.5-10.1) mg/dL Total Bilirubin 0.3 (0.2-1.0) mg/dL AST 19 (15-37) U/L ALT 30 (14-59) U/L Alkaline Phosphatase 86 (46-116) U/L Troponin I (0.000-0.056) ng/mL B-Natriuretic Peptide (0-100) pg/ml Total Protein 6.9 (6.4-8.2) g/dL Albumin 3.6 (3.4-5.0) g/dL Globulin 3.3 Albumin/Globulin Ratio 1.1 COVID-19 (BUCKY) (NEGATIVE) 11/11/19 11/11/19 11/11/19 Range/Units 19:03 19:10 19:54 WBC (5.0-10.0) 10^3/uL RBC (4.2-5.4) 10^6/uL Hgb (12.0-16.0) g/dL Hct (37.0-47.0) % MCV (80-100) fL MCH (27.0-34.0) pg MCHC (33.0-35.0) g/dL Plt Count (150-450) 10^3/uL Neut % (Auto) (42.2-75.2) % Lymph % (Auto) (20.5-50.1) % Thomas % (Auto) (2-8) % Eos % (Auto) (1.0-3.0) % Baso % (Auto) (0.0-1.0) % D-Dimer, Quantitative (0-400) ng/mL Sodium (136-145) mmol/L Potassium (3.5-5.1) mmol/L Chloride (98-107) mmol/L Carbon Dioxide (21-32) mmol/L Anion Gap (7-13) mEq/L BUN (7-18) mg/dL Creatinine (0.55-1.02) mg/dL Est Cr Clr Drug Dosing mL/min Estimated GFR (MDRD) BUN/Creatinine Ratio (No establ ref range) Glucose (74-99) mg/dL Lactic Acid 1.4 (0.4-2.0) mmol/L Calcium (8.5-10.1) mg/dL Total Bilirubin (0.2-1.0) mg/dL AST (15-37) U/L ALT (14-59) U/L Alkaline Phosphatase (46-116) U/L Troponin I < 0.017 (0.000-0.056) ng/mL B-Natriuretic Peptide 124 H (0-100) pg/ml Total Protein (6.4-8.2) g/dL Albumin (3.4-5.0) g/dL Globulin Albumin/Globulin Ratio COVID-19 (BUCKY) Negative (NEGATIVE) Meds: Medications Discontinued Medications Generic Name Dose Route Start Last Admin Trade Name Freq PRN Reason Stop Dose Admin Sodium Chloride 1,000 mls @ 999 mls/hr 11/11/19 21:09 11/11/19 21:11 Normal Saline IV 11/11/19 22:09 999 mls/hr .BOLUS ONE Administration Iopamidol 100 ml 11/11/19 20:37 11/11/19 21:10 Isovue-370 (76%) IVPUSH 11/11/19 20:38 59 ml ONETIME ONE Administration Methylprednisolone Sodium Succinate 125 mg 11/11/19 20:08 11/11/19 20:26 Solu-Medrol IVPUSH 11/11/19 20:09 125 mg ONETIME ONE Administration - Re-Assessments/Exams Free Text/Narrative Re-Assessment/Exam: O2 stable, upper 90's, Denies SOB since presentation. Rare cough. Occasional wheeze clears with cough. Reports at baseline. SOB absent. Results f lab and radiologic studies reviewed with patient. Departure - Departure Time of Disposition: 21:34 Disposition: Home, Self-Care 01 Condition: Good Clinical Impression: COPD with exacerbation - Discharge Information *PRESCRIPTION DRUG MONITORING PROGRAM REVIEWED*: No *COPY OF PRESCRIPTION DRUG MONITORING REPORT IN PATIENT CORWIN: No Instructions: Chronic Obstructive Pulmonary Disease Exacerbation, [id number] Forms: ED Department Discharge Additional Instructions: clinic follow up this week albuterol/ipratropium inhaler every 6 hours as needed prednisone 20mg daily for 5 days avoid exposure to others while on prednisone clinic follow up this week recheck on breathing 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
[2019-11-11] MEDS ORDERED: Sodium Chloride 0.9% 1,000 ML IV ONE (21:09)
--- NOTE | 2019-11-11 21:21 | CT ---
PROCEDURE INFORMATION: Exam: CT Chest With Contrast Exam date and time: 11/11/2019 8:58 PM Age: 79 years old Clinical indication: Shortness of breath; Additional info: Cough elevated ddimer 800 TECHNIQUE: Imaging protocol: Computed tomography of the chest with intravenous contrast. Radiation optimization: All CT scans at this facility use at least one of these dose optimization techniques: automated exposure control; mA and/or kV adjustment per patient size (includes targeted exams where dose is matched to clinical indication); or iterative reconstruction. Contrast material: ISOVUE 370; Contrast volume: 59 ml; Contrast route: INTRAVENOUS (IV); COMPARISON: CT Chest w Cont 02/16/2018 1:31 PM FINDINGS: Lungs: Unremarkable. No consolidation. No masses. Pleural space: Unremarkable. No pneumothorax. No pleural effusion. Heart: Unremarkable. No cardiomegaly. No pericardial effusion. Aorta: Unremarkable. No aortic aneurysm. 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 This appears to be associated with a severe stenosis Lymph nodes: Unremarkable. No enlarged lymph nodes. Bones/joints: Unremarkable. No acute fracture. Soft tissues: Unremarkable. IMPRESSION: 1. No acute findings. 2. No pulmonary arterial embolism. 3. No acute lung infiltrates or consolidation. 4. No pleural effusion. 5. No pe. ricardial effusion 6. 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
== END 2019-11-11 21:43 | disposition home or self-care (01) ==
LOC: DL.ED 18:48
DX: J44.1 Chronic obstructive pulmonary disease with (acute) exacerbation (principal); N18.3 Chronic kidney disease, stage 3 (moderate); M19.90 Unspecified osteoarthritis, unspecified site; E11.9 Type 2 diabetes mellitus without complications; Z20.828 Contact with and (suspected) exposure to other viral communicable diseases; Z87.891 Personal history of nicotine dependence; Z88.1 Allergy status to other antibiotic agents; Z88.2 Allergy status to sulfonamides; Z88.8 Allergy status to other drugs, medicaments and biological substances; Z79.82 Long term (current) use of aspirin; Z79.899 Other long term (current) drug therapy
CPT/HCPCS: 36415; 71045; 71260; 80053; 83605; 83880; 84484; 85025; 85379; 87040; 96374; 99285; J2930; J7030; Q9967; U0002

== ENCOUNTER 2020-08-31 06:53 | Emergency (ER) | payer MEDICARE, OTHER ==
[2020-08-31 07:09] VITALS: BP 158/54; PULSE 64
--- NOTE | 2020-08-31 07:17 | EDM.PDOC ---
ED HPI GENERAL MEDICAL PROBLEM - General Chief Complaint: Abdominal Pain Stated Complaint: [id number] LEFT SIDE PAIN Time Seen by Provider: 08/31/20 07:15 Source of Information: Reports: Patient, Old Records, RN, RN Notes Reviewed History Limitations: Reports: No Limitations - History of Present Illness INITIAL COMMENTS - FREE TEXT/NARRATIVE: Pt presents to ER from home by POV with c/o three days duration of LLQ abdominal pain. Pt states that sometimes the pain is a deep aching, but occasionally has sharp jabbing pain. Yesterday the pain began radiating up into the left flank a brea. Pt reports about 2 weeks of diarrhea that began three weeks ago. Due to Hx of microscopic colitis she started a non-dairy & no grains diet last week and the diarrhea has improved. She reports having a normal formed BM this morning. Denies fever, chills, N/V, dysuria, hematuria, or any blood or mucus in stool. Onset: Gradual Duration: Day(s): (3) Location: Reports: Abdomen Quality: Reports: Ache Severity: Severe Improves with: Reports: None Worsens with: Reports: None Associated Symptoms: Reports: No Other Symptoms Left Lower Abdomen Pain Score (Numeric/FACES): 4 - Related Data Allergies Allergy/AdvReac Type Severity Reaction Status Date / Time cephalexin [Cephalexin] Allergy Cannot Verified 08/31/20 07:06 Remember levofloxacin [From Levaquin] Allergy Muscle Verified 08/31/20 07:06 Aches Penicillins Allergy Rash Verified 08/31/20 07:06 sulfadiazine [Sulfadiazine] Allergy Cannot Verified 08/31/20 07:06 Remember triamcinolone Allergy Cannot Verified 08/31/20 07:06 Remember triamcinolone acetonide Allergy Swollen Verified 08/31/20 07:06 [From Nasacort AQ] Tongue Home Meds: Home Meds Aspirin [Low Dose Aspirin EC] 81 mg PO BEDTIME 06/19/13 [History] Benazepril [Lotensin] 60 mg PO BID 06/19/13 [History] Metoprolol Tartrate 400 mg PO BID 06/19/13 [History] amLODIPine [Norvasc] 10 mg PO BEDTIME 06/19/13 [History] Albuterol [Ventolin HFA] 2 puff INH Q4H PRN 11/26/13 [History] Cetirizine HCl [Zyrtec] 10 mg PO ASDIRECTED PRN 02/16/18 [History] Chlorthalidone 25 mg PO DAILY 02/16/18 [History] Fluticasone Propionate [Flonase Allergy Relief] 1 spray NASBOTH ASDIRECTED PRN 02/16/18 [History] Fluticasone/Salmeterol [Advair 500-50] 1 puff PO TID 02/16/18 [History] Isosorbide Mononitrate [Isosorbide Mononitrate ER] 30 mg PO BID 02/16/18 [History] Ipratropium [Atrovent 0.06% Nasal [place]] 15 ml BENEDICT TID PRN 02/17/18 [History] Albuterol/Ipratropium [DuoNeb 3.0-0.5 MG/3 ML] 3 ml NEB QID PRN #60 neb 02/18/18 [Rx] Past Medical History HEENT History: Reports: Hard of Hearing, Impaired Vision Cardiovascular History: Reports: None Respiratory History: Reports: COPD, Pneumonia, Recurrent, SOB Other Respiratory History: Hx of double pneumonia recurrent in the , since pneumonia vaccine was givne in the .it has not reoccured Gastrointestinal History: Reports: Other (See Below) Other Gastrointestinal History: Hx of microscopic colitis Genitourinary History: Reports: Renal Disease, Other (See Below) Other Genitourinary History: Stage 3 kidney disease. 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 Musculoskeletal History: Reports: Osteoarthritis Neurological History: Reports: CVA, Other (See Below) Other Neuro History: Right side CVA Psychiatric History: Reports: Depression Endocrine/Metabolic History: Reports: Diabetes, Type II, Other (See Below) Other Endocrine/Metabolic History: Controled with diet Hematologic History: Reports: None Immunologic History: Reports: None Oncologic (Cancer) History: Reports: None Dermatologic History: Reports: None - Infectious Disease History Infectious Disease History: Reports: Chicken Pox, Measles, Mumps, Shingles - Past Surgical History Head Surgeries/Procedures: Reports: None HEENT Surgical History: Reports: Laser Surgery Other HEENT Surgeries/Procedures: bilateral eye Cardiovascular Surgical History: Reports: None GI Surgical History: Reports: None Female Surgical History: Reports: D&C Endocrine Surgical History: Reports: None Neurological Surgical History: Reports: None Musculoskeletal Surgical History: Reports: None Social & Family History - Family History Family Medical History: No Pertinent Family History - Tobacco Use Tobacco Use Status *Q: Former Tobacco User Years of Tobacco use: 62 Used Tobacco, but Quit: Yes Month/Year Tobacco Last Used: 2.5years Second Hand Smoke Exposure: No - Caffeine Use Caffeine Use: Reports: Coffee, Soda - Recreational Drug Use Recreational Drug Use: No - Living Situation & Occupation Occupation: Retired ED ROS GENERAL - Review of Systems Review Of Systems: Comprehensive ROS is negative, except as noted in HPI. ED EXAM, GI/ABD - Physical Exam Exam: See Below Exam Limited By: No Limitations General Appearance: Alert, WD/WN, No Apparent Distress Eyes: Bilateral: Normal Appearance (No scleral icterus) Nose: Normal Inspection Throat/Mouth: Normal Lips, Normal Voice, No Airway Compromise Head: Atraumatic, Normocephalic Neck: Normal Inspection Respiratory/Chest: No Respiratory Distress, Lungs Clear, No Accessory Muscle Use, Chest Non-Tender, Decreased Breath Sounds Cardiovascular: Regular Rate, Rhythm GI/Abdominal Exam: Normal Bowel Sounds, Soft, No Organomegaly, No Distention, Pelvis Stable, Tender (LUQ, LLQ, RLQ). No: Guarding, Rigid, Rebound (Female) Exam: Deferred Rectal (Female) Exam: Deferred Back Exam: Full Range of Motion, CVA Tenderness (L). No: CVA Tenderness (R), Vertebral Tenderness Extremities: Normal Inspection, No Pedal Edema Neurological: Alert, Oriented, Normal Cognition, Normal Gait, No Motor/Sensory Deficits Psychiatric: Normal Affect, Normal Mood Skin Exam: Warm, Dry, Intact, Normal Color, No Rash Course - Vital Signs Last Recorded V/S: Last Vital Signs Temp 97.4 F 08/31/20 07:08 Pulse 64 08/31/20 07:08 Resp 18 08/31/20 07:08 BP 158/54 H 08/31/20 07:08 Pulse Ox 98 08/31/20 07:08 - Orders/Labs/Meds Orders: Active Orders 24 hr Category Date Time Status Peripheral IV Care [RC] . DIRECTED Care 08/31/20 07:23 Active CULTURE URINE [RM] Stat Lab 08/31/20 07:30 Received Sodium Chloride 0.9% [Saline Flush] Med 08/31/20 07:23 Active 10 ml FLUSH ASDIRECTED PRN Peripheral IV Insertion Adult [OM.PC] Stat Oth 08/31/20 07:23 Ordered Medication Orders Methylprednisolone Sodium Succinate (Methylprednisolone Sodium Succinate 125 Mg/2 Ml Sdv) 125 mg IVPUSH ONETIME ONE Stop: 08/31/20 08:48 Sodium Chloride (Sodium Chloride 0.9% 10 Ml Syringe) 10 ml FLUSH ASDIRECTED PRN PRN Reason: Keep Vein Open Last Admin: 08/31/20 07:44 Dose: 10 ml Documented by: MARKIE Labs: Laboratory Tests 08/31/20 08/31/20 08/31/20 Range/Units 07:30 07:40 07:40 WBC 6.4 (5.0-10.0) 10^3/uL RBC 4.21 (4.2-5.4) 10^6/uL Hgb 12.9 (12.0-16.0) g/dL Hct 39.5 (37.0-47.0) % MCV 93.8 (80-100) fL MCH 30.6 (27.0-34.0) pg MCHC 32.7 L (33.0-35.0) g/dL Plt Count 256 (150-450) 10^3/uL Neut % (Auto) 55.3 (42.2-75.2) % Lymph % (Auto) 32.0 (20.5-50.1) % [place] % (Auto) 10.5 H (2-8) % Eos % (Auto) 1.6 (1.0-3.0) % Baso % (Auto) 0.6 (0.0-1.0) % Sodium 137 (136-145) mmol/L Potassium 4.3 (3.5-5.1) mmol/L Chloride 100 (98-107) mmol/L Carbon Dioxide 27 (21-32) mmol/L Anion Gap 14.3 H (7-13) mEq/L BUN 38 H (7-18) mg/dL Creatinine 1.45 H (0.55-1.02) mg/dL Est Cr Clr Drug Dosing 27.03 mL/min Estimated GFR (MDRD) 35 BUN/Creatinine Ratio 26.2 (No establ ref range) Glucose 176 H (70-99) mg/dL Lactic Acid (0.4-2.0) mmol/L Calcium 9.6 (8.5-10.1) mg/dL Total Bilirubin 0.4 (0.2-1.0) mg/dL AST 26 (15-37) U/L ALT 32 (14-59) U/L Alkaline Phosphatase 107 (46-116) U/L C-Reactive Protein 0.5 (0.0-0.9) mg/dL Total Protein 7.5 (6.4-8.2) g/dL Albumin 4.0 (3.4-5.0) g/dL Globulin 3.5 Albumin/Globulin Ratio 1.1 Amylase 76 (25-115) U/L Lipase 411 H (73-393) U/L Urine Color Yellow (YELLOW) Urine Appearance Clear (CLEAR) Urine pH 5.0 (5.0-9.0) Ur Specific [place] 1.015 (1.005-1.030) Urine Protein Negative (NEGATIVE) Urine Glucose (UA) Negative (NEGATIVE) Urine Ketones Negative (NEGATIVE) Urine Occult Blood Negative (NEGATIVE) Urine Nitrite Negative (NEGATIVE) Urine Bilirubin Negative (NEGATIVE) Urine Urobilinogen 0.2 (0.2-1.0) mg/dL Ur Leukocyte Esterase Small H (NEGATIVE) U Hyaline Cast (Auto) Rare Urine RBC 0-5 /HPF Urine WBC 0-5 (0-5/HPF) /HPF Ur Epithelial Cells Few (NOT SEEN) /HPF Urine Bacteria Rare (0-FEW/HPF) /HPF Urine Mucus Rare (NOT SEEN) /LPF 08/31/20 Range/Units 07:40 WBC (5.0-10.0) 10^3/uL RBC (4.2-5.4) 10^6/uL Hgb (12.0-16.0) g/dL Hct (37.0-47.0) % MCV (80-100) fL MCH (27.0-34.0) pg MCHC (33.0-35.0) g/dL Plt Count (150-450) 10^3/uL Neut % (Auto) (42.2-75.2) % Lymph % (Auto) (20.5-50.1) % [place] % (Auto) (2-8) % Eos % (Auto) (1.0-3.0) % Baso % (Auto) (0.0-1.0) % Sodium (136-145) mmol/L Potassium (3.5-5.1) mmol/L Chloride (98-107) mmol/L Carbon Dioxide (21-32) mmol/L Anion Gap (7-13) mEq/L BUN (7-18) mg/dL Creatinine (0.55-1.02) mg/dL Est Cr Clr Drug Dosing mL/min Estimated GFR (MDRD) BUN/Creatinine Ratio (No establ ref range) Glucose (70-99) mg/dL Lactic Acid 0.8 (0.4-2.0) mmol/L Calcium (8.5-10.1) mg/dL Total Bilirubin (0.2-1.0) mg/dL AST (15-37) U/L ALT (14-59) U/L Alkaline Phosphatase (46-116) U/L C-Reactive Protein (0.0-0.9) mg/dL Total Protein (6.4-8.2) g/dL Albumin (3.4-5.0) g/dL Globulin Albumin/Globulin Ratio Amylase (25-115) U/L Lipase (73-393) U/L Urine Color (YELLOW) Urine Appearance (CLEAR) Urine pH (5.0-9.0) Ur Specific [place] (1.005-1.030) Urine Protein (NEGATIVE) Urine Glucose (UA) (NEGATIVE) Urine Ketones (NEGATIVE) Urine Occult Blood (NEGATIVE) Urine Nitrite (NEGATIVE) Urine Bilirubin (NEGATIVE) Urine Urobilinogen (0.2-1.0) mg/dL Ur Leukocyte Esterase (NEGATIVE) U Hyaline Cast (Auto) Urine RBC /HPF Urine WBC (0-5/HPF) /HPF Ur Epithelial Cells (NOT SEEN) /HPF Urine Bacteria (0-FEW/HPF) /HPF Urine Mucus (NOT SEEN) /LPF Meds: Medications Generic Name Dose Route Start Last Admin Trade Name Freq PRN Reason Stop Dose Admin Methylprednisolone Sodium Succinate 125 mg 08/31/20 08:47 Methylprednisolone Sodium Succinate 125 Mg/2 Ml Sdv IVPUSH 08/31/20 08:48 ONETIME ONE Sodium Chloride 10 ml 08/31/20 07:23 08/31/20 07:44 Sodium Chloride 0.9% 10 Ml Syringe FLUSH 10 ml ASDIRECTED PRN Administration Keep Vein Open - Radiology Interpretation Free Text/Narrative:: [facility] [place] [facility] Final Radiology Report Call: [phone] assistance Online chat: [email or web address] Creative Communication Name: ARA MOSES Age: 80Years F Date: 08/31/2020 SSN: -- : [id number] Study: CT ABDOMEN PELVIS WO CONT Requesting Physician: ANDREI LOPEZ Images: [id number] Addl Studies: Provided Clinical History: Left abdominal & flank pain. Contrast: Without Contrast Medium: Contrast Amount: Contrast Method: Page 1 of 2 PROCEDURE INFORMATION: Exam: CT Abdomen And Pelvis Without Contrast Exam date and time: 08/31/2020 8:11 AM Age: 80 years old Clinical indication: Abdominal pain; Localized; Left; Patient HX: HX bladder CA, diverticulitis, ckd stage 3, and microscopic colitis; Additional info: Left abdominal & flank pain. TECHNIQUE: Imaging protocol: Computed tomography of the abdomen and pelvis without contrast. Radiation optimization: All CT scans at this facility use at least one of these dose optimization techniques: automated exposure control; mA and/or kV adjustment per patient size (includes targeted exams where dose is matched to clinical indication); or iterative reconstruction. COMPARISON: CT Abdomen Pelvis wo Cont 10/03/2018 10:00 AM FINDINGS: Lungs: A 3.5 mm noncalcified pulmonary nodule is redemonstrated in the lateral basilar segment of the right lower lobe (LOC 4.9). Heart: Mitral annular calcification is present. Liver: Normal. No mass. Gallbladder and bile ducts: The gallbladder is partially contracted. Pancreas: Moderate pancreatic atrophy. Spleen: Normal. No splenomegaly. Adrenal glands: Normal. No mass. Kidneys and ureters: No specific evidence of acute obstructive uropathy. No urinary tract calculi. Exophytic left renal lower pole probable benign cyst measuring 2.1 cm. Stomach and bowel: Mild splenic flexure colonic wall thickening. Sigmoid and distal descending colonic diverticula are present without evidence of diverticulitis. Appendix: The vermiform appendix is normal. ARA MOSES | Final Radiology Report CONFIDENTIALITY STATEMENT This report is intended only for use by the referring physician, and only in accordance with law. If you received this in error, call [phone]. Page 2 of 2 Intraperitoneal space: Unremarkable. No free air. No significant fluid collection. Vasculature: Marked aortic atherosclerotic calcification without aneurysm. The iliac arteries show marked bilateral atherosclerotic calcifications without evidence of aneurysm. Moderate aortic valvular calcification is present. Atherosclerotic calcifications are present involving the RCA coronary artery. Lymph nodes: No enlarged lymph nodes. Urinary bladder: No urinary bladder mass identified. The urinary bladder is partially decompressed and somewhat difficult to assess. Reproductive: Unremarkable as visualized. Bones/joints: Grade 1 L4-5 degenerative type anterolisthesis. Bilateral lower lumbar facet primary osteoarthritis. Soft tissues: Unremarkable. IMPRESSION: 1. No specific evidence of acute obstructive uropathy. 2. Mild splenic flexure colonic wall thickening. The finding is suggestive of possible mild nonspecific colitis. Clinical correlation with the patient's specific symptomatology is recommended. 3. No urinary bladder mass identified. 4. Left renal probable benign cyst. No follow-up imaging is recommended. 5. Diverticulosis. 6. Coronary atherosclerosis. 7. Stable noncalcified right lower lobe pulmonary nodule. Esther et al., Fleischner Society, 2017, recommendations are: "For patients at low risk (minimal or absent history of smoking and of other known risk factors), no routine follow-up is indicated. For patients at high risk (history of smoking or of other known risk factors), consider optional CT at 12 months". The follow-up interval exceeds the recommendations, no additional follow-up required/recommended. COMMENTS: Consistent with the [place] [employer]'s Incidental Findings Committee white paper (J Am Sapna Radiol 2018): Any incidental renal lesion less than 1 cm or classified as too small to characterize, or any incidental cystic renal lesion characterized as simple- appearing, is likely benign. No follow-up imaging is recommended for these lesions per consensus recommendations based on imaging criteria. Thank you for allowing us to participate in the care of your patient. Dictated and Authenticated by: Osvaldo Clement MD 08/31/2020 8:46 AM Central Time ([place] & [place]) Departure - Departure Time of Disposition: 08:48 Disposition: Home, Self-Care 01 Condition: Good Clinical Impression: Colitis - Discharge Information *PRESCRIPTION DRUG MONITORING PROGRAM REVIEWED*: Not Applicable *COPY OF PRESCRIPTION DRUG MONITORING REPORT IN PATIENT [place]: Not Applicable Instructions: Colitis Forms: ED Department Discharge Additional Instructions: Rx: Prednisone 20mg Follow up in clinic in 3 to 4 days for recheck. Sepsis Event Note (ED) - Evaluation Sepsis Screening Result: No Definite Risk - Focused Exam Vital Signs: Vital Signs Temp Pulse Resp BP Pulse Ox 08/31/20 07:08 97.4 F 64 18 158/54 H 98 - My Orders Last 24 Hours: My Active Orders 08/31/20 07:23 Peripheral IV Care [RC] . DIRECTED Sodium Chloride 0.9% [Saline Flush] 10 ml FLUSH ASDIRECTED PRN Peripheral IV Insertion Adult [OM.PC] Stat 08/31/20 07:30 CULTURE URINE [RM] Stat - Assessment/Plan Last 24 Hours: My Active Orders 08/31/20 07:23 Peripheral IV Care [RC] . DIRECTED Sodium Chloride 0.9% [Saline Flush] 10 ml FLUSH ASDIRECTED PRN Peripheral IV Insertion Adult [OM.PC] Stat 08/31/20 07:30 CULTURE URINE [RM] Stat
[2020-08-31] MEDS ORDERED: Sodium Chloride 0.9% 10 ML Syringe FLUSH PRN (07:23)
[2020-08-31 08:04] LABS: ANION GAP 14.3 mEq/L (7-13)
--- NOTE | 2020-08-31 08:46 | CT ---
PROCEDURE INFORMATION: Exam: CT Abdomen And Pelvis Without Contrast Exam date and time: 08/31/2020 8:11 AM Age: 80 years old Clinical indication: Abdominal pain; Localized; Left; Patient HX: HX bladder CA, diverticulitis, ckd stage 3, and microscopic colitis; Additional info: Left abdominal & flank pain. TECHNIQUE: Imaging protocol: Computed tomography of the abdomen and pelvis without contrast. Radiation optimization: All CT scans at this facility use at least one of these dose optimization techniques: automated exposure control; mA and/or kV adjustment per patient size (includes targeted exams where dose is matched to clinical indication); or iterative reconstruction. COMPARISON: CT Abdomen Pelvis wo Cont 10/03/2018 10:00 AM FINDINGS: Lungs: A 3.5 mm noncalcified pulmonary nodule is redemonstrated in the lateral basilar segment of the right lower lobe (LOC 4.9). Heart: Mitral annular calcification is present. Liver: Normal. No mass. Gallbladder and bile ducts: The gallbladder is partially contracted. Pancreas: Moderate pancreatic atrophy. Spleen: Normal. No splenomegaly. Adrenal glands: Normal. No mass. Kidneys and ureters: No specific evidence of acute obstructive uropathy. No urinary tract calculi. Exophytic left renal lower pole probable benign cyst measuring 2.1 cm. Stomach and bowel: Mild splenic flexure colonic wall thickening. Sigmoid and distal descending colonic diverticula are present without evidence of diverticulitis. Appendix: The vermiform appendix is normal. Intraperitoneal space: Unremarkable. No free air. No significant fluid collection. Vasculature: Marked aortic atherosclerotic calcification without aneurysm. The iliac arteries show marked bilateral atherosclerotic calcifications without evidence of aneurysm. Moderate aortic valvular calcification is present. Atherosclerotic calcifications are present involving the RCA coronary artery. Lymph nodes: No enlarged lymph nodes. Urinary bladder: No urinary bladder mass identified. The urinary bladder is partially decompressed and somewhat difficult to assess. Reproductive: Unremarkable as visualized. Bones/joints: Grade 1 L4-5 degenerative type anterolisthesis. Bilateral lower lumbar facet primary osteoarthritis. Soft tissues: Unremarkable. IMPRESSION: 1. No specific evidence of acute obstructive uropathy. 2. Mild splenic flexure colonic wall thickening. The finding is suggestive of possible mild nonspecific colitis. Clinical correlation with the patient's specific symptomatology is recommended. 3. No urinary bladder mass identified. 4. Left renal probable benign cyst. No follow-up imaging is recommended. 5. Diverticulosis. 6. Coronary atherosclerosis. 7. Stable noncalcified right lower lobe pulmonary nodule. Esther et al., Fleischner Society, 2017, recommendations are: For patients at low risk (minimal or absent history of smoking and of other known risk factors), no routine follow-up is indicated. For patients at high risk (history of smoking or of other known risk factors), consider optional CT at 12 months". The follow-up interval exceeds the recommendations, no additional follow-up required/recommended. COMMENTS: Consistent with the [employer] [employer]'s Incidental Findings Committee white paper (J Am Sapna Radiol 2018): Any incidental renal lesion less than 1 cm or classified as too small to characterize, or any incidental cystic renal lesion characterized as simple-appearing, is likely benign. No follow-up imaging is recommended for these lesions per consensus recommendations based on imaging criteria.
[2020-08-31] MEDS ORDERED: methylPREDNISolone Sodium Succinate 125 MG/2 ML SDV IVPUSH ONE (08:47)
== END 2020-08-31 09:13 | disposition home or self-care (01) ==
LOC: DL.ED 06:53
DX: K52.9 Noninfective gastroenteritis and colitis, unspecified (principal); J44.9 Chronic obstructive pulmonary disease, unspecified; E11.22 Type 2 diabetes mellitus with diabetic chronic kidney disease; N18.30 Chronic kidney disease, stage 3 unspecified; Z79.82 Long term (current) use of aspirin; Z88.0 Allergy status to penicillin; Z87.891 Personal history of nicotine dependence; Z88.1 Allergy status to other antibiotic agents; Z88.2 Allergy status to sulfonamides; Z88.5 Allergy status to narcotic agent
CPT/HCPCS: 36415; 74176; 80053; 81001; 82150; 83605; 83690; 85025; 86140; 87086; 87088; 96374; 99284; 99284-25; J2930

== ENCOUNTER 2020-09-04 07:10 | Emergency (ER) | payer MEDICARE, OTHER ==
--- NOTE | 2020-09-04 07:20 | EDM.PDOC ---
"ED HPI GENERAL MEDICAL PROBLEM - General Chief Complaint: Abdominal Pain Stated Complaint: RETURNING WITH STOMACH PAIN Time Seen by Provider: 09/04/20 07:19 Source of Information: Reports: Patient, Old Records, RN, RN Notes Reviewed History Limitations: Reports: No Limitations - History of Present Illness INITIAL COMMENTS - FREE TEXT/NARRATIVE: Pt presents to ER from home by POV with c/o abdominal pain. Pt was seen here on 08/31/20 with similar pain, had a lab and CT Abd/Pelvis work up showing colitis. 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 She followed up in clinic but does not feel that anything was done for her, other than to suggest that maybe her pancreas was diseased and to treat her for constipation. Today pt states that she has severe left flank and left sided abdominal pain. Denies fever, hematuria, bloody/black/melanotic stools, diarrhea, or constipation. She admits to some slight nausea, but attributes it only to the pain. Denies vomiting. The pain is fairly constant, does not radiate, and is not aggravated or alleviated by anything. 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: Other Medication(s) (Prednisone) Left Abdomen Pain Score (Numeric/FACES): 9 - Related Data Allergies Allergy/AdvReac Type Severity Reaction Status Date / Time cephalexin [Cephalexin] Allergy Cannot Verified 08/31/20 07:06 Remember levofloxacin [From Levaquin] Allergy Muscle Verified 08/31/20 07:06 Aches Penicillins Allergy Rash Verified 08/31/20 07:06 sulfadiazine [Sulfadiazine] Allergy Cannot Verified 08/31/20 07:06 Remember triamcinolone Allergy Cannot Verified 08/31/20 07:06 Remember triamcinolone acetonide Allergy Swollen Verified 08/31/20 07:06 [From Nasacort AQ] Tongue Home Meds: Home Meds Aspirin [Low Dose Aspirin EC] 81 mg PO BEDTIME 06/19/13 [History] Benazepril [Lotensin] 60 mg PO BID 06/19/13 [History] Metoprolol Tartrate 400 mg PO BID 06/19/13 [History] amLODIPine [Norvasc] 10 mg PO BEDTIME 06/19/13 [History] Albuterol [Ventolin HFA] 2 puff INH Q4H PRN 11/26/13 [History] Cetirizine HCl [Zyrtec] 10 mg PO ASDIRECTED PRN 02/16/18 [History] Chlorthalidone 25 mg PO DAILY 02/16/18 [History] Fluticasone Propionate [Flonase Allergy Relief] 1 spray NASBOTH ASDIRECTED PRN 02/16/18 [History] Fluticasone/Salmeterol [Advair 500-50] 1 puff PO TID 02/16/18 [History] Isosorbide Mononitrate [Isosorbide Mononitrate ER] 30 mg PO BID 02/16/18 [History] Ipratropium [Atrovent 0.06% Nasal Hext] 15 ml BENEDICT TID PRN 02/17/18 [History] Albuterol/Ipratropium [DuoNeb 3.0-0.5 MG/3 ML] 3 ml NEB QID PRN #60 neb 02/18/18 [Rx] Past Medical History HEENT History: Reports: Hard of Hearing, Impaired Vision Cardiovascular History: Reports: None Respiratory History: Reports: COPD, Pneumonia, Recurrent, SOB Other Respiratory History: Hx of double pneumonia recurrent in the , since pneumonia vaccine was givne in the .it has not reoccured Gastrointestinal History: Reports: Other (See Below) Other Gastrointestinal History: Hx of microscopic colitis Genitourinary History: Reports: Renal Disease, Other (See Below) Other Genitourinary History: Stage 3 kidney disease. 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 Musculoskeletal History: Reports: Osteoarthritis Neurological History: Reports: CVA, Other (See Below) Other Neuro History: Right side CVA Psychiatric History: Reports: Depression Endocrine/Metabolic History: Reports: Diabetes, Type II, Other (See Below) Other Endocrine/Metabolic History: Controled with diet Hematologic History: Reports: None Immunologic History: Reports: None Oncologic (Cancer) History: Reports: None Dermatologic History: Reports: None - Infectious Disease History Infectious Disease History: Reports: Chicken Pox, Measles, Mumps, Shingles - Past Surgical History Head Surgeries/Procedures: Reports: None HEENT Surgical History: Reports: Laser Surgery Other HEENT Surgeries/Procedures: bilateral eye Cardiovascular Surgical History: Reports: None GI Surgical History: Reports: None Female Surgical History: Reports: D&C Endocrine Surgical History: Reports: None Neurological Surgical History: Reports: None Musculoskeletal Surgical History: Reports: None Social & Family History - Family History Family Medical History: No Pertinent Family History - Caffeine Use Caffeine Use: Reports: Coffee, Soda - Living Situation & Occupation Occupation: Retired ED ROS GENERAL - Review of Systems Review Of Systems: Comprehensive ROS is negative, except as noted in HPI. ED EXAM, GI/ABD - Physical Exam Exam: See Below Exam Limited By: No Limitations General Appearance: Alert, WD/WN, No Apparent Distress Eyes: Bilateral: Normal Appearance (No scleral icterus) Nose: Normal Inspection Throat/Mouth: Normal Lips, Normal Voice, No Airway Compromise Head: Atraumatic, Normocephalic Neck: Normal Inspection Respiratory/Chest: No Respiratory Distress, Lungs Clear, No Accessory Muscle Use, Chest Non-Tender, Decreased Breath Sounds Cardiovascular: Regular Rate, Rhythm, No Edema GI/Abdominal Exam: Normal Bowel Sounds, Soft, No Organomegaly, No Distention, No Abnormal Bruit, No Mass, Pelvis Stable, Tender (LUQ). No: Guarding, Rigid, Rebound Back Exam: Full Range of Motion, CVA Tenderness (L). No: CVA Tenderness (R), Paraspinal Tenderness, Vertebral Tenderness Extremities: Normal Inspection Neurological: Alert, Oriented, No Motor/Sensory Deficits Psychiatric: Normal Affect, Normal Mood Skin Exam: Warm, Dry, Intact, Normal Color, No Rash. No: Ecchymosis, Jaundice, Petechiae Course - Vital Signs Last Recorded V/S: Last Vital Signs Temp 97.5 F 09/04/20 07:16 Pulse 62 09/04/20 08:22 Resp 18 09/04/20 08:22 BP 161/65 H 09/04/20 08:22 Pulse Ox 96 09/04/20 08:22 - Orders/Labs/Meds Orders: Active Orders 24 hr Category Date Time Status Peripheral IV Care [RC] . DIRECTED Care 09/04/20 07:36 Active Sodium Chloride 0.9% [Saline Flush] Med 09/04/20 07:35 Active 10 ml FLUSH ASDIRECTED PRN Peripheral IV Insertion Adult [OM.PC] Stat Oth 09/04/20 07:36 Ordered Medication Orders Sodium Chloride (Sodium Chloride 0.9% 10 Ml Syringe) 10 ml FLUSH ASDIRECTED PRN PRN Reason: Keep Vein Open Last Admin: 09/04/20 08:19 Dose: 10 ml Documented by: KEVIN Labs: Laboratory Tests 09/04/20 09/04/20 09/04/20 Range/Units 07:45 07:57 07:57 WBC 8.5 (5.0-10.0) 10^3/uL RBC 4.31 (4.2-5.4) 10^6/uL Hgb 13.1 (12.0-16.0) g/dL Hct 40.1 (37.0-47.0) % MCV 93.0 (80-100) fL MCH 30.4 (27.0-34.0) pg MCHC 32.7 L (33.0-35.0) g/dL Plt Count 285 (150-450) 10^3/uL Neut % (Auto) 54.7 (42.2-75.2) % Lymph % (Auto) 33.8 (20.5-50.1) % [place] % (Auto) 10.8 H (2-8) % Eos % (Auto) 0.5 L (1.0-3.0) % Baso % (Auto) 0.2 (0.0-1.0) % Sodium 142 (136-145) mmol/L Potassium 4.4 (3.5-5.1) mmol/L Chloride 103 (98-107) mmol/L Carbon Dioxide 28 (21-32) mmol/L Anion Gap 15.4 H (7-13) mEq/L BUN 46 H (7-18) mg/dL Creatinine 1.56 H (0.55-1.02) mg/dL Est Cr Clr Drug Dosing 25.13 mL/min Estimated GFR (MDRD) 32 BUN/Creatinine Ratio 29.5 (No establ ref range) Glucose 130 H (70-99) mg/dL Lactic Acid (0.4-2.0) mmol/L Calcium 9.7 (8.5-10.1) mg/dL Total Bilirubin 0.4 (0.2-1.0) mg/dL AST 23 (15-37) U/L ALT 42 (14-59) U/L Alkaline Phosphatase 93 (46-116) U/L C-Reactive Protein < 0.2 (0.0-0.9) mg/dL Total Protein 7.5 (6.4-8.2) g/dL Albumin 4.1 (3.4-5.0) g/dL Globulin 3.4 Albumin/Globulin Ratio 1.2 Amylase 73 (25-115) U/L Lipase 417 H (73-393) U/L Urine Color Yellow (YELLOW) Urine Appearance Clear (CLEAR) Urine pH 5.5 (5.0-9.0) Ur Specific [place] 1.025 (1.005-1.030) Urine Protein 30 H (NEGATIVE) Urine Glucose (UA) Negative (NEGATIVE) Urine Ketones Negative (NEGATIVE) Urine Occult Blood Negative (NEGATIVE) Urine Nitrite Negative (NEGATIVE) Urine Bilirubin Negative (NEGATIVE) Urine Urobilinogen 0.2 (0.2-1.0) mg/dL Ur Leukocyte Esterase Negative (NEGATIVE) Urine RBC 0-5 /HPF Urine WBC Not seen (0-5/HPF) /HPF Ur Epithelial Cells Rare (NOT SEEN) /HPF Urine Bacteria Rare (0-FEW/HPF) /HPF 09/04/20 Range/Units 07:57 WBC (5.0-10.0) 10^3/uL RBC (4.2-5.4) 10^6/uL Hgb (12.0-16.0) g/dL Hct (37.0-47.0) % MCV (80-100) fL MCH (27.0-34.0) pg MCHC (33.0-35.0) g/dL Plt Count (150-450) 10^3/uL Neut % (Auto) (42.2-75.2) % Lymph % (Auto) (20.5-50.1) % [place] % (Auto) (2-8) % Eos % (Auto) (1.0-3.0) % Baso % (Auto) (0.0-1.0) % Sodium (136-145) mmol/L Potassium (3.5-5.1) mmol/L Chloride (98-107) mmol/L Carbon Dioxide (21-32) mmol/L Anion Gap (7-13) mEq/L BUN (7-18) mg/dL Creatinine (0.55-1.02) mg/dL Est Cr Clr Drug Dosing mL/min Estimated GFR (MDRD) BUN/Creatinine Ratio (No establ ref range) Glucose (70-99) mg/dL Lactic Acid 1.2 (0.4-2.0) mmol/L Calcium (8.5-10.1) mg/dL Total Bilirubin (0.2-1.0) mg/dL AST (15-37) U/L ALT (14-59) U/L Alkaline Phosphatase (46-116) U/L C-Reactive Protein (0.0-0.9) mg/dL Total Protein (6.4-8.2) g/dL Albumin (3.4-5.0) g/dL Globulin Albumin/Globulin Ratio Amylase (25-115) U/L Lipase (73-393) U/L Urine Color (YELLOW) Urine Appearance (CLEAR) Urine pH (5.0-9.0) Ur Specific [place] (1.005-1.030) Urine Protein (NEGATIVE) Urine Glucose (UA) (NEGATIVE) Urine Ketones (NEGATIVE) Urine Occult Blood (NEGATIVE) Urine Nitrite (NEGATIVE) Urine Bilirubin (NEGATIVE) Urine Urobilinogen (0.2-1.0) mg/dL Ur Leukocyte Esterase (NEGATIVE) Urine RBC /HPF Urine WBC (0-5/HPF) /HPF Ur Epithelial Cells (NOT SEEN) /HPF Urine Bacteria (0-FEW/HPF) /HPF Meds: Medications Generic Name Dose Route Start Last Admin Trade Name Rick PRN Reason Stop Dose Admin Sodium Chloride 10 ml 09/04/20 07:35 09/04/20 08:19 Sodium Chloride 0.9% 10 Ml Syringe FLUSH 10 ml ASDIRECTED PRN Administration Keep Vein Open Discontinued Medications Generic Name Dose Route Start Last Admin Trade Name Rick PRN Reason Stop Dose Admin Hydromorphone HCl 0.5 mg 09/04/20 08:00 09/04/20 08:12 Hydromorphone 0.5 Mg/0.5 Ml Syringe IVPUSH 09/04/20 08:01 0.5 mg ONETIME ONE Administration Sodium Chloride 1,000 mls @ 999 mls/hr 09/04/20 08:00 09/04/20 09:14 Normal Saline IV 09/04/20 09:00 Infused .BOLUS ONE Infusion Ondansetron HCl 4 mg 09/04/20 08:00 09/04/20 08:12 Ondansetron 4 Mg/2 Ml Sdv IV 09/04/20 08:01 4 mg ONETIME ONE Administration - Radiology Interpretation Free Text/Narrative:: Review of CT Abd/Pelvis from 08/31/20; findings of colitis and left renal cyst, see Rad. report. [facility] [place] [facility] Final Radiology Report Call: [phone] assistance Online chat: [email or web address] Name: ARA MOSES Age: 80Years F Date: 09/04/2020 SSN: -- : [id number] Study: US ABDOMEN COMP Requesting Physician: ANDREI LOPEZ Images: [id number] Addl Studies: Provided Clinical History: Upper abdominal pain, left flank pain Contrast: Without Contrast Medium: Contrast Amount: Contrast Method: Page 1 of 2 PROCEDURE INFORMATION: Exam: US Abdomen Complete Exam date and time: 09/04/2020 9:44 AM Age: 80 years old Clinical indication: Pain; Other: Left flank; Additional info: Upper abdominal pain, left flank pain TECHNIQUE: Imaging protocol: Real-time ultrasound of the abdomen with image documentation. COMPARISON: CT Abdomen Pelvis wo Cont 08/31/2020 8:11 AM FINDINGS: Liver: Increased echogenicity of the liver suggestive of fatty infiltration. Gallbladder: Normal. No gallstones. There is no gallbladder wall thickening. Common bile duct: The common bile duct measures 3.8 mm. Pancreas: Visualized pancreas is unremarkable. Right kidney: The right kidney measures 10 x 4 x 4.2 cm. No evidence of hydronephrosis or stones. Left kidney: The left kidney measures 9.8 x 4.1 x 4.6 cm. No evidence of hydronephrosis or stones. 1.7 x 1.2 cm simple appearing cyst in the midportion of the left kidney. Spleen: The spleen measures 10.7 cm in length. Urinary bladder: Evaluation of the bladder is unremarkable. Aorta: The aorta is normal in caliber. Inferior vena cava: Normal. IMPRESSION: 1. Increased echogenicity of the liver suggestive of fatty infiltration. 2. 1.7 x 1.2 cm simple appearing cyst in the midportion of the left kidney. Otherwise unremarkable abdominal ultrasound. ARA MOSES | Final Radiology Report CONFIDENTIALITY STATEMENT This report is intended only for use by the referring physician, and only in accordance with law. If you received this in error, call [phone]. Page 2 of 2 Thank you for allowing us to participate in the care of your patient. Dictated and Authenticated by: Odalys Sandoval MD 09/04/2020 10:42 AM Central Time ([place] & [place]) Departure - Departure Time of Disposition: 11:04 Disposition: Home, Self-Care 01 Condition: Good, Undetermined Clinical Impression: Colitis, Renal cyst, left Abdominal pain Qualifiers: Abdominal location: upper abdomen, unspecified Qualified Code(s): R10.10 - Upper abdominal pain, unspecified - Discharge Information *PRESCRIPTION DRUG MONITORING PROGRAM REVIEWED*: No *COPY OF PRESCRIPTION DRUG MONITORING REPORT IN PATIENT [place]: No Instructions: Abdominal Pain, Adult, [id number], Colitis Forms: ED Department Discharge Additional Instructions: Rx: [place] 5mg/325mg Follow up in clinic next week for recheck and referral to a GI specialist. Sepsis Event Note (ED) - Focused Exam Vital Signs: Vital Signs Temp Pulse Resp BP Pulse Ox 09/04/20 08:22 62 18 161/65 H 96 09/04/20 07:16 97.5 F 66 20 174/61 H 97 - My Orders Last 24 Hours: My Active Orders 09/04/20 07:35 Sodium Chloride 0.9% [Saline Flush] 10 ml FLUSH ASDIRECTED PRN 09/04/20 07:36 Peripheral IV Care [RC] . DIRECTED Peripheral IV Insertion Adult [OM.PC] Stat - Assessment/Plan Last 24 Hours: My Active Orders 09/04/20 07:35 Sodium Chloride 0.9% [Saline Flush] 10 ml FLUSH ASDIRECTED PRN 09/04/20 07:36 Peripheral IV Care [RC] . DIRECTED Peripheral IV Insertion Adult [OM.PC] Stat"
[2020-09-04] MEDS ORDERED: Sodium Chloride 0.9% 10 ML Syringe FLUSH PRN (07:35)
[2020-09-04] MEDS ORDERED: HYDROmorphone 0.5 MG/0.5 ML Syringe IVPUSH ONE (08:00)
[2020-09-04] MEDS ORDERED: Sodium Chloride 0.9% 1,000 ML IV ONE (08:00)
[2020-09-04] MEDS ORDERED: Ondansetron 4 MG/2 ML SDV IV ONE (08:00)
[2020-09-04 08:24] VITALS: BP 161/65; PULSE 62
[2020-09-04 08:34] LABS: ANION GAP 15.4 mEq/L (7-13); CHLORIDE,CL 103 mmol/L (98-107); SODIUM,NA 142 mmol/L (136-145)
--- NOTE | 2020-09-04 10:42 | US ---
PROCEDURE INFORMATION: Exam: US Abdomen Complete Exam date and time: 09/04/2020 9:44 AM Age: 80 years old Clinical indication: Pain; Other: Left flank; Additional info: Upper abdominal pain, left flank pain TECHNIQUE: Imaging protocol: Real-time ultrasound of the abdomen with image documentation. COMPARISON: CT Abdomen Pelvis wo Cont 08/31/2020 8:11 AM FINDINGS: Liver: Increased echogenicity of the liver suggestive of fatty infiltration. Gallbladder: Normal. No gallstones. There is no gallbladder wall thickening. Common bile duct: The common bile duct measures 3.8 mm. Pancreas: Visualized pancreas is unremarkable. Right kidney: The right kidney measures 10 x 4 x 4.2 cm. No evidence of hydronephrosis or stones. Left kidney: The left kidney measures 9.8 x 4.1 x 4.6 cm. No evidence of hydronephrosis or stones. 1.7 x 1.2 cm simple appearing cyst in the midportion of the left kidney. Spleen: The spleen measures 10.7 cm in length. Urinary bladder: Evaluation of the bladder is unremarkable. Aorta: The aorta is normal in caliber. Inferior vena cava: Normal. IMPRESSION: 1. Increased echogenicity of the liver suggestive of fatty infiltration. 2. 1.7 x 1.2 cm simple appearing cyst in the midportion of the left kidney. Otherwise unremarkable abdominal ultrasound.
== END 2020-09-04 11:19 | disposition home or self-care (01) ==
LOC: DL.ED 07:10
DX: K52.9 Noninfective gastroenteritis and colitis, unspecified (principal); N28.1 Cyst of kidney, acquired; J44.9 Chronic obstructive pulmonary disease, unspecified; E11.9 Type 2 diabetes mellitus without complications; M19.90 Unspecified osteoarthritis, unspecified site; Z88.1 Allergy status to other antibiotic agents; Z88.0 Allergy status to penicillin; Z88.2 Allergy status to sulfonamides; Z88.8 Allergy status to other drugs, medicaments and biological substances; Z79.82 Long term (current) use of aspirin; Z79.899 Other long term (current) drug therapy; Z86.73 Personal history of transient ischemic attack (TIA), and cerebral infarction without residual deficits
CPT/HCPCS: 36415; 76700; 80053; 81001; 82150; 82272; 83605; 83690; 85025; 86140; 96374; 96375; 99284; 99284-25; J1170; J2405; J7030

== ENCOUNTER 2020-09-14 05:59 | Day surgery (SDC) | payer MEDICARE, OTHER ==
[~2020-09-14 05:59] MED LIST: Midazolam 1 MG/ML 2 ML SDV ONE; fentaNYL 100 MCG/2 ML SDV ONE
[2020-09-14] MEDS ORDERED: Dextrose 5%-0.45% NaCl 1,000 ML IV SCH (06:00)
[2020-09-14] MEDS ORDERED: Sodium Chloride 0.9% 10 ML Syringe FLUSH PRN (06:00)
[2020-09-14] MEDS ORDERED: Midazolam 1 MG/ML 2 ML SDV IV ONE ×3 (06:00→07:43)
[2020-09-14] MEDS ORDERED: fentaNYL 100 MCG/2 ML SDV IV ONE ×3 (06:00→07:42)
--- NOTE | 2020-09-14 11:50 | OR ---
DATE: 09/14/2020 PROCEDURES: Esophagogastroduodenoscopy and multiple pinch biopsies. INSTRUMENT USED: [id number]-HQ190 Olympus video panendoscope. PREMEDICATIONS: No oral or topical anesthesia used. Fentanyl 100 mcg intravenous, Versed 1.5 mg intravenous, nasal O2 cannula. The procedure was done under pulse oximetry, BP recording, and director of cardiac rehabilitation. INDICATION: The patient with known lymphocytic colitis with recent abdominal pain, dyspepsia, bloating, as well as diarrhea. Esophagogastroduodenoscopy is performed for detection of any active erosive lesions, Ward esophagus and/or malignancy also under consideration, H pylori status to be determined, small bowel biopsies to be obtained for any evidence of celiac disease. Endoscopic hemostasis therapy if needed. PROCEDURE IN DETAIL: The scope was passed with ease. Adequate visualization of the esophagus was made from proximal to distal areas. No upper esophageal lesions identified. No distal esophageal stricture. No uphill or downhill esophageal varices. No Dede-Meza tear. No evidence of erosive esophagitis by Bates criteria. No esophageal polyp or tumor mass identified. Z-line was seen at around 40 cm distal to the oral verge. No proximal gastric varices noted. Gastric fundus examination by retroflexion showed no polypoid lesions. No gastric ulcer, malignant mass, or vascular ectasia identified. Numerous scattered gastric antral erosions were noted without bleeding from them. Duodenal bulb showed no ulcer. Visualized second part of the duodenum was unremarkable. Multiple pinch biopsies, 4 in number, were taken from different areas of the second part of the duodenum. Tissues were also obtained from the duodenal bulb at 9 and 12 o'clock positions and sent for any histopathologic evidence of celiac disease. Multiple pinch biopsies were also taken from the gastric antrum and proximal body and sent for PyloriTek test for H pylori and histopathology. No bleeding was noted from any of the visualized areas at the completion of examination. Photographs were taken of the duodenal bulb, gastric antrum, fundus, and distal esophagus. IMPRESSION: Gastric antral erosions. The patient tolerated the procedure well. [facility] /[id number]
[2020-09-14 12:36] VITALS: BP 158/48; PULSE 73
== END 2020-09-14 10:04 | disposition home or self-care (01) ==
LOC: DL.ENDO 05:59
PROVIDERS: ATTEND Internal Medicine Gastroenterology
DX: K25.9 Gastric ulcer, unspecified as acute or chronic, without hemorrhage or perforation (principal); K31.89 Other diseases of stomach and duodenum; I78.1 Nevus, non-neoplastic; K52.832 Lymphocytic colitis; I10 Essential (primary) hypertension; E78.5 Hyperlipidemia, unspecified; E11.9 Type 2 diabetes mellitus without complications; J44.9 Chronic obstructive pulmonary disease, unspecified; Z87.891 Personal history of nicotine dependence; Z86.73 Personal history of transient ischemic attack (TIA), and cerebral infarction without residual deficits; Z88.8 Allergy status to other drugs, medicaments and biological substances; Z88.0 Allergy status to penicillin; Z98.890 Other specified postprocedural states
CPT/HCPCS: 87077; 88305; J2250; J3010; J7042

== ENCOUNTER → 2020-10-06 | Day surgery (SDC) | payer MEDICARE, OTHER ==
[~2020-10-06] MED LIST changes: +Dextrose 5%-0.45% NaCl 1,000 ML IV SCH; +Midazolam 1 MG/ML 2 ML SDV IV ONE; +Sodium Chloride 0.9% 10 ML Syringe FLUSH PRN; +fentaNYL 100 MCG/2 ML SDV IV ONE
[2020-10-06 10:58] VITALS: BP 120/47; PULSE 50
--- NOTE | 2020-10-06 11:40 | OR ---
DATE: 10/06/2020 PROCEDURES: Total colonoscopy, narrow band imaging, and multiple cold snare polypectomies and biopsies. INSTRUMENT USED: [id number] Olympus video colonoscope. PREMEDICATIONS: Fentanyl 100 mcg intravenous, Versed 4 mg intravenous. Nasal O2 cannula. The procedure was done under pulse oximetry, BP recording, and radiation monitor. INDICATION: The patient with known lymphocytic colitis and persistent diarrhea, not responsive to medical measures. Recent CT suggestive of prominent fold around the splenic flexure area, malignancy under consideration. Colonoscopic examination is done for detection of any polypoid lesions and removal, endoscopic hemostasis therapy if needed. DESCRIPTION OF PROCEDURE: Initial rectal exam showed external hemorrhoidal tags. Rigid anoscopy showed small internal hemorrhoids without bleeding from them. The colonoscope was passed with ease. Numerous scattered diverticula were noted in the distal left colon along with significant deformity. The scope was passed with ease up to the ileocecal area. Photographs were taken of the normal-appearing cecum, identified by landmarks of appendiceal orifice and double-bulged ileocecal folds. No bleeding was noted from any of the visualized areas at the commencement of the examination. Bowel preparation was found to be adequate. [place] scale 2 in all the areas. Probing the proximal sides of folds and flexures using adequate distention and clearing up the stool material, withdrawal of the scope was made. In the mid ascending colon, diminutive benign- appearing polyp was noted, photograph was taken, cold snare polypectomy was done. The tissues were retrieved and sent for histopathology. In the distal descending colon, 1 cm sized polyps, 2 in number were noted. NBI views were taken. Photographs were obtained. Cold snare polypectomies were done. The tissues were retrieved and sent for histopathology. No stricture. No vascular ectasia. No large isolated ulcerations seen. No evidence of diffuse inflammatory bowel disease in the form of friability, contact bleeding, or ulcerations. Multiple pinch biopsies were taken from the normal-appearing mucosa of the mid transverse colon, mid descending colon, and rectosigmoid and sent for any evidence of microscopic colitis. No bleeding was noted from any of the visualized areas at the completion of examination. IMPRESSION: 1. External and internal hemorrhoids. 2. Diverticulosis. 3. Multiple colonic polyps. The patient tolerated the procedure well. [facility] /[id number]
== END | disposition home or self-care (01) ==
LOC: DL.ENDO 06:23
PROVIDERS: ATTEND Internal Medicine Gastroenterology
DX: D12.2 Benign neoplasm of ascending colon (principal); D12.4 Benign neoplasm of descending colon; K64.4 Residual hemorrhoidal skin tags; K52.832 Lymphocytic colitis; K57.30 Diverticulosis of large intestine without perforation or abscess without bleeding; K64.8 Other hemorrhoids; I10 Essential (primary) hypertension; E78.5 Hyperlipidemia, unspecified; E11.9 Type 2 diabetes mellitus without complications; J44.9 Chronic obstructive pulmonary disease, unspecified; N28.1 Cyst of kidney, acquired; Z87.891 Personal history of nicotine dependence; Z86.73 Personal history of transient ischemic attack (TIA), and cerebral infarction without residual deficits; Z98.890 Other specified postprocedural states; Z88.0 Allergy status to penicillin; Z88.2 Allergy status to sulfonamides; Z88.8 Allergy status to other drugs, medicaments and biological substances
CPT/HCPCS: J2250; J3010; J7042

== ENCOUNTER 2021-12-16 10:46 | Emergency (ER) | payer MEDICARE, OTHER ==
[2021-12-16 11:23] VITALS: BP 109/60; PULSE 84
[2021-12-16] MEDS ORDERED: Sodium Chloride 0.9% 10 ML Syringe FLUSH PRN (11:25)
[2021-12-16] MEDS ORDERED: Sodium Chloride 0.9% 1,000 ML IV ONE ×2 (11:25→12:34)
[2021-12-16 12:03] LABS: ANION GAP 12.3 mEq/L (7-13)
[2021-12-16 14:21] LABS: ANION GAP 14.1 mEq/L (7-13)
== END 2021-12-16 15:48 | disposition home or self-care (01) ==
LOC: DL.ED 10:46
DX: E86.0 Dehydration (principal); N17.9 Acute kidney failure, unspecified; J44.9 Chronic obstructive pulmonary disease, unspecified; I10 Essential (primary) hypertension; E11.9 Type 2 diabetes mellitus without complications; Z88.1 Allergy status to other antibiotic agents; Z88.0 Allergy status to penicillin; Z88.2 Allergy status to sulfonamides; Z79.899 Other long term (current) drug therapy; Z79.82 Long term (current) use of aspirin; Z86.73 Personal history of transient ischemic attack (TIA), and cerebral infarction without residual deficits; Z86.16 Personal history of COVID-19; Z87.891 Personal history of nicotine dependence
CPT/HCPCS: 36415; 80053; 83735; 84100; 85025; 96360; 96361; 99284-25; J3490; J7030

== ENCOUNTER 2022-06-02 13:36 | Emergency (ER) | payer MEDICARE, OTHER ==
[2022-06-02] MEDS ORDERED: Albuterol/Ipratropium 3.0-0.5 MG/3 ML Neb Soln NEB ONE (14:25)
[2022-06-02] MEDS ORDERED: Sodium Chloride 0.9% 10 ML Syringe FLUSH PRN (14:27)
[2022-06-02] MEDS ORDERED: Acetaminophen 325 MG Tab PO ONE (14:28)
[2022-06-02] MEDS ORDERED: Sodium Chloride 0.9% 500 ML IV SCH (14:30)
[2022-06-02] MEDS ORDERED: methylPREDNISolone Sodium Succinate 125 MG/2 ML SDV IVPUSH ONE (14:30)
[2022-06-02 15:06] LABS: ANION GAP 14.2 mEq/L (7-13)
[2022-06-02 15:23] LABS: CORONAVIRUS COVID-19 NAA NEGATIVE (NEGATIVE); RESPIRATORY SYNCYTIAL VIR NAA NEGATIVE (NEGATIVE)
[2022-06-02] MEDS ORDERED: Azithromycin 250 MG Tab PO ONE (16:30)
[2022-06-02 16:57] VITALS: BP 151/65; PULSE 104
== END 2022-06-02 16:49 | disposition home or self-care (01) ==
LOC: DL.ED 13:36
DX: J44.1 Chronic obstructive pulmonary disease with (acute) exacerbation (principal); B34.9 Viral infection, unspecified; I12.9 Hypertensive chronic kidney disease with stage 1 through stage 4 chronic kidney disease, or unspecified chronic kidney disease; E11.22 Type 2 diabetes mellitus with diabetic chronic kidney disease; N18.30 Chronic kidney disease, stage 3 unspecified; I44.7 Left bundle-branch block, unspecified; Z88.1 Allergy status to other antibiotic agents; Z88.2 Allergy status to sulfonamides; Z88.0 Allergy status to penicillin; Z88.8 Allergy status to other drugs, medicaments and biological substances; Z79.82 Long term (current) use of aspirin; Z79.84 Long term (current) use of oral hypoglycemic drugs; Z79.899 Other long term (current) drug therapy; Z20.822 Contact with and (suspected) exposure to COVID-19
CPT/HCPCS: 0241U; 36415; 71045; 80053; 81001; 83605; 84484; 85025; 87040; 87081; 87086; 87430; 93005; 93010; 94640; 96361; 96374; 99284; 99284-25; A9270-GY; J2930; J7040; J7620-GY

== ENCOUNTER 2023-06-02 18:13 | Emergency (ER) | payer MEDICARE, OTHER ==
[2023-06-02 18:37] VITALS: BP 178/73; PULSE 111
== END 2023-06-02 19:34 | disposition home or self-care (01) ==
LOC: DL.ED 18:13
DX: J18.9 Pneumonia, unspecified organism (principal); J01.00 Acute maxillary sinusitis, unspecified; I10 Essential (primary) hypertension; J44.9 Chronic obstructive pulmonary disease, unspecified; E11.9 Type 2 diabetes mellitus without complications; M19.90 Unspecified osteoarthritis, unspecified site; Z88.0 Allergy status to penicillin; Z88.2 Allergy status to sulfonamides; Z88.8 Allergy status to other drugs, medicaments and biological substances; Z79.899 Other long term (current) drug therapy; Z79.82 Long term (current) use of aspirin; Z86.16 Personal history of COVID-19
CPT/HCPCS: 99284

== ENCOUNTER 2023-07-18 20:27 | Emergency (ER) | payer MEDICARE, OTHER ==
[2023-07-18] MEDS: EPINEPHrine 1:10,000 1 MG/10 ML Syringe IVPUSH ONE ×3 (20:32→20:36)
[2023-07-18] MEDS: Calcium Chloride 10% 1 GM/10 ML Syringe IVPUSH ONE (20:33)
[2023-07-18] MEDS: Sodium Bicarbonate 8.4% 50 MEQ/50 ML Syringe IVPUSH ONE ×2 (20:35→21:05)
[2023-07-18] MEDS ORDERED: Sodium Chloride 0.9% 10 ML Syringe FLUSH PRN (20:42)
[2023-07-18 20:49] LABS: O2 DELIVERY DEVICE VENTILATOR
[2023-07-18 20:51] LABS: HEMATOCRIT 34.6 % (37.0-47.0); HEMOGLOBIN 10.8 g/dL (12.0-16.0); MEAN CORPUSCULAR HEMOGLOBIN 30.3 pg (27.0-34.0); MEAN CORPUSCULAR HGB CONC 31.2 g/dL (33.0-35.0); MEAN CORPUSCULAR VOLUME 97.2 fL (80-100); PLATELET COUNT,PLT 276 10^3/uL (150-450); RED BLOOD CELL COUNT 3.56 10^6/uL (4.2-5.4); WHITE BLOOD CELL COUNT,WBC 17.2 10^3/uL (5.0-10.0)
[2023-07-18 20:52] LABS: BASOPHILS PERCENT AUTO 0.2 % (0.0-1.0); EOSINOPHILS PERCENT AUTO 0.8 % (1.0-3.0); LYMPHOCYTES PERCENT AUTO 68.6 % (20.5-50.1); MONOCYTES PERCENT AUTO 5.2 % (2-8); NEUTROPHILS PERCENT AUTO 25.2 % (42.2-75.2)
[2023-07-18 20:57] LABS: BASE EXCESS VENOUS -8.4 mmol/l ((-2)-(+3)); BICARBONATE,VENOUS 27 mmol/l (19-25); O2 SATURATION VENOUS 42.9 % (60-80); PO2 VENOUS 42 mmHg (35-42)
[2023-07-18 20:59] LABS: PCO2 VENOUS 130 mmHg (41-51); PH,VENOUS 6.95 (7.31-7.41)
[2023-07-18 21:05] LABS: ALANINE AMINOTRANSFERASE,ALT 14 U/L (14-59); ALKALINE PHOSPHATASE 118 U/L (46-116); ANION GAP 23.3 mEq/L (7-13); ASPARTATE AMNIOTRANSFERASE,AST 19 U/L (15-37); BILIRUBIN TOTAL 0.2 mg/dL (0.2-1.0); BLOOD UREA NITROGEN,BUN 34 mg/dL (7-18); BUN/CREATININE RATIO 19.5 (No establ ref range); C-REACTIVE PROTEIN 0.85 ng/dL (<=0.50); CARBON DIOXIDE,CO2 27 mmol/L (21-32); CHLORIDE,CL 106 mmol/L (98-107); CREATININE 1.74 mg/dL (0.55-1.02); GLUCOSE RANDOM 230 mg/dL (70-99); POTASSIUM,K 5.3 mmol/L (3.5-5.1); PROTEIN TOTAL,TP 6.1 g/dL (6.4-8.2); SODIUM,NA 151 mmol/L (136-145)
[2023-07-18 21:06] LABS: ESTIMATED GFR 29 mL/min (>=60)
[2023-07-18 21:07] LABS: A/G RATIO 0.97; CALCIUM 13.9 mg/dL (8.5-10.1)
[2023-07-18 21:09] LABS: BAND PERCENT MAN 1 %; EOSINOPHILS PERCENT MAN 1 % (1-3); LYMPHOCYTES PERCENT MAN 68 % (20-50); MONOCYTES PERCENT MAN 3 % (2-8); SEG NEUTROPHILS PERCENT MAN 27 % (42-75)
[2023-07-18] MEDS: Midazolam 1 MG/ML 2 ML SDV IVPUSH ONE (21:12)
[2023-07-18] MEDS: Rocuronium 100 MG/10 ML MDV IVPUSH ONE (21:13)
[2023-07-18] MEDS: Sodium Chloride 0.45% 1,000 ML IV SCH (21:28)
[2023-07-18] MEDS ORDERED: Sodium Chloride 0.9% 1,000 ML IV SCH (21:30)
[2023-07-18] MEDS: Norepinephrine Bit/D5W Premix 250 ML IV SCH (21:33)
[2023-07-18] MEDS: Sodium Chloride 0.9% 1,000 ML IV ONE (21:40)
[2023-07-18] MEDS: Midazolam 50 MG in Sodium Chloride 0.9% 40 ML IV SCH (21:42)
[2023-07-18 21:45] LABS: O2 DELIVERY DEVICE VENTILATOR
[2023-07-18 21:47] LABS: BASE EXCESS VENOUS -6.1 mmol/l ((-2)-(+3)); BICARBONATE,VENOUS 21 mmol/l (19-25); O2 SATURATION VENOUS 92.1 % (60-80); PCO2 VENOUS 51 mmHg (41-51); PO2 VENOUS 73 mmHg (35-42)
[2023-07-18 21:48] LABS: PH,VENOUS 7.23 (7.31-7.41)
[2023-07-18 21:50] LABS: LACTIC ACID 19.2 mmol/L (0.4-2.0)
[2023-07-18 21:53] LABS: APPEARANCE,URINE CLEAR (CLEAR); BILIRUBIN,URINE NEGATIVE (NEGATIVE); COLOR,URINE YELLOW (YELLOW); GLUCOSE,URINE NEGATIVE (NEGATIVE); KETONES,URINE NEGATIVE (NEGATIVE); LEUKOCYTE ESTERASE,URINE NEGATIVE (NEGATIVE); NITRITE,URINE NEGATIVE (NEGATIVE); OCCULT BLOOD,URINE NEGATIVE (NEGATIVE); PH,URINE 5.5 (5.0-9.0); PROTEIN,URINE 100 (NEGATIVE); UROBILINOGEN,URINE 0.2 mg/dL (0.2-1.0)
[2023-07-18 21:57] LABS: AMPHETAMINES,URINE NEGATIVE (NEGATIVE); BARBITURATES,URINE NEGATIVE (NEGATIVE); BENZODIAZEPINE,URINE NEGATIVE (NEGATIVE); MDMA (ECSTASY), URINE NEGATIVE (NEGATIVE); METHADONE,URINE NEGATIVE (NEGATIVE); METHAMPHETAMINES,URINE NEGATIVE (NEGATIVE); OPIATES,URINE NEGATIVE (NEGATIVE); OXYCODONE,URINE NEGATIVE (NEGATIVE); PHENCYCLIDINE,URINE NEGATIVE (NEGATIVE); TCA,URINE NEGATIVE (NEGATIVE)
[2023-07-18] MEDS: Ketamine 500 MG in Sodium Chloride 0.9% 500 ML IV ONE (22:00)
[2023-07-18 22:05] LABS: BACTERIA,URINE OCCASIONAL /HPF (0-FEW/HPF); EPITHELIAL CELLS,URINE FEW /HPF (NOT SEEN); MUCUS,URINE RARE /LPF (NOT SEEN); RBC,URINE 0-5 /HPF (0-5); WBC,URINE 0-5 /HPF (0-5/HPF)
[2023-07-18] MEDS: Sodium Bicarbonate 8.4% 50 MEQ/50 ML Syringe ONE (22:07)
[2023-07-18] MEDS: Norepinephrine Bit/D5W Premix 250 ML ONE (22:09)
[2023-07-18] MEDS: Piperacillin/Tazobactam 4.5 GM in Sodium Chloride 0.9% 100 ML IV ONE (22:23)
[2023-07-18] MEDS ORDERED: Vasopressin 100 UNITS in Dextrose 5% in Water 245 ML IV SCH (22:30)
[2023-07-18] MEDS: VASOPRESSIN IV SCH (22:49)
[2023-07-18] MEDS: DEXTROSE 5% IV SCH (22:49)
[2023-07-18] MEDS: WATER IV SCH (22:49)
[2023-07-19 00:34] VITALS: BP 138/59; PULSE 81
== END 2023-07-18 23:56 ==
LOC: DL.ED 20:27
DX: I46.9 Cardiac arrest, cause unspecified (principal); A41.9 Sepsis, unspecified organism; J18.9 Pneumonia, unspecified organism; I10 Essential (primary) hypertension; J44.9 Chronic obstructive pulmonary disease, unspecified; M19.90 Unspecified osteoarthritis, unspecified site; E11.9 Type 2 diabetes mellitus without complications; Z86.73 Personal history of transient ischemic attack (TIA), and cerebral infarction without residual deficits; Z86.16 Personal history of COVID-19; Z79.82 Long term (current) use of aspirin; Z79.899 Other long term (current) drug therapy; Z88.0 Allergy status to penicillin; Z88.1 Allergy status to other antibiotic agents; Z88.2 Allergy status to sulfonamides; Z88.8 Allergy status to other drugs, medicaments and biological substances
CPT/HCPCS: 31500; 36415; 43752; 51702; 71045; 80053; 80305-QW; 81001; 82803; 82947; 83605; 84484; 85025; 86140; 87040; 92950; 93005; 93010; 96365; 96366; 96367; 96368; 96375; 99285; 99285-25; J0171; J2250; J2543; J3370; J3490; J7030; J7040; J7050; J7060